=== PATIENT | male | born 1990 | race Caucasian/White ===

== ENCOUNTER 2021-11-04 09:39 | Emergency (ER) | payer MEDICAID, SELFPAY ==
[2021-11-04 09:45] VITALS: BP 149/88; PULSE 85; RESP 16; TEMP 37.2; O2SAT 100; BMI 25.2
--- NOTE | 2021-11-04 10:12 | ED.PSYCH ---
HPI - Psych General Chief Complaint: Psychiatric Symptoms Stated Complaint: Crisis Time Seen by Provider: 11/04/21 09:55 Source: patient Mode of arrival: ambulatory Limitations: no limitations History of Present Illness HPI Narrative: 31 yo male previously healthy here with reports of suicidal ideations over the last 1 month with no plan. No homicidal ideations, hallucinations. Patient tells me he has been intermittently snorting and smoking cocaine. He does also drink alcohol occasionally. No additional substance use. No physical complaints. Patient tells me he recently had a break-up with a partner and believes this may be contributing to his symptoms Related Data Allergies Allergy/AdvReac Type Severity Reaction Status Date / Time cefdinir [From OMNICEF] Allergy Unknown ANAPHYLAXIS Verified 11/04/21 09:45 Review of Systems Review of Systems: Yes all other systems are reviewed and are negative Constitutional: Constitutional: Reports no additional constitutional complaints, Denies body ache(s), Denies chills, Denies fever(s), Denies headache(s) and Denies weakness Eyes: Eyes: Reports no additional eye complaints and Denies change in vision ENT: Reports system reviewed and no additional complaints, except as documented, Denies dizziness, Denies headache(s), Denies nasal congestion, Denies nasal discharge and Denies neck pain Cardiovascular: Cardiovascular: Reports no additional cardiovascular complaints, Denies chest pain, Denies leg edema and Denies dyspnea Respiratory: Respiratory: Reports no additional respiratory complaints, Denies cough and Denies dyspnea Gastrointestinal: Gastrointestinal: Reports no additional gastrointestinal complaints, Denies abdominal pain, Denies diarrhea, Denies nausea and Denies vomiting Genitourinary: Genitourinary: Denies urinary incontinence Musculoskeletal: Musculoskeletal: Reports no additional musculoskeletal complaints, Denies back pain, Denies arthralgias, Denies joint swelling, Denies neck pain, Denies numbness and Denies tingling Integumentary/Breasts: Skin/Breast: Reports system reviewed and no additional complaints, except as docu and Denies rash Neurologic: Reports system reviewed and no additional complaints, except as documented, Denies Abnormal speech present, Denies dizziness, Denies headache(s), Denies numbness, Denies tingling and Denies weakness Psychiatric: Psychiatric: Denies anxiety, Reports depression, Denies visual hallucinations, Denies hallucinations, Denies homicidal ideation and Reports suicidal ideation [facility] Past Medical History Attestation statement: The following information was validated with the patient. Source: old records reviewed and nursing notes reviewed Medical History No known health problems Social History Social History Smoked in Last 30 Days: Yes Use of substances other than those prescribed or required for medical reasons: Refusing to respond Advance Directives: No Advance Directives Information Provided: No Physical Exam Vital Signs: Vital Signs: Last Vital Signs Temp 97.7 F 11/04/21 15:00 Pulse 67 11/04/21 15:00 Resp 12 11/04/21 15:00 BP 127/71 11/04/21 15:00 Pulse Ox 100 11/04/21 15:00 BMI result Body Mass Index 25.2 Const: General: cooperative, healthy appearing, comfortable and no acute distress Orientation/consciousness: patient oriented x3 Limitations: no limitations HENMT: Head: Yes normal to inspection Ears: hearing grossly normal bilaterally General nose exam: Normal external nose present Face and sinus: Yes normal facial exam Mouth: Normal oral and palatal mucosa present Throat: Yes posterior oropharynx normal Eyes: General: appearance normal, both eyes and all related structures Pupils: Equal, round and reactive pupils present Neck: Neck: Yes normal visual inspection Chest: Chest palpation & inspection: normal inspection of the chest Resp: Effort & Inspection: normal respiratory effort Auscultation: clear to auscultation bilaterally Cardio: Rate: regular rate Rhythm: regular rhythm Peripheral pulses: Peripheral pulses 2+ throughout GI: Inspection: Yes normal to inspection Palpation (GI): Soft to palpation and nontender Auscultation: normal bowel sounds Back/Spine/Pelvis: Thoracic/Lumbar Spine: thoracic and lumbar spine normal to inspection Skin: General skin exam: no rashes or lesions noted Neuro: General: patient oriented x3, no focal motor deficits and normal sensation to monofilament Cranial nerves: Yes CN's II-XII intact bilaterally, Yes Equal, round and reactive pupils present, Yes Bilaterally intact EOM present, Yes Nystagmus not present, Yes Normal facial strength present and Yes Midline tongue present Cognition (Neuro): normal cognition Speech: No Abnormal speech present Gait exam (Neuro): Normal gait present Motor exam (neuro): 5/5 motor strength present throughout Sensory Exam: Normal double simultaneous stimulation for sensation Extrem: General: Yes normal to inspection and Yes no pedal edema Course Course Course Narrative: 31-year-old male here with reports of suicidal thoughts over the last 1 month. No physical complaints. No concern for acute ingestion or trauma will check labs, toxicology, COVID screen. patient will need crisis evaluation 1800-Sign out to night team pending crisis evaluation. MDM - Psych Medical Records Attestation: I reviewed the patient's medical records. Lab Data Attestation: I reviewed the patient's lab results. Result diagrams: 11/04/21 10:23 11/04/21 10:23 Labs: Lab Results 11/04/21 11/04/21 11/04/21 Range/Units 10:23 10: 10:23 WBC 8.1 (4.8-10.8) X10*3/uL RBC 5.32 (4.60-5.80) X10*6/uL Hgb 15.7 (14.0-18.0) g/dl Hct 46.0 (42.0-52.0) % MCV 86.5 (80.0-98.0) fL MCH 29.5 (27.0-33.0) pg MCHC 34.1 (31.0-36.0) g/dl RDW 12.2 (11.0-16.0) % Plt Count 331 (160-400) X10*3/uL MPV 8.9 L (9.4-12.4) fL Immature Gran % (Auto) 0.2 (0.0-0.4) % Neut % (Auto) 63.5 (45-73) % Lymph % (Auto) 24.3 (20-40) % [place] % (Auto) 9.4 (2-11) % Eos % (Auto) 2.2 (0-4) % Baso % (Auto) 0.4 (0-2) % Lymph # (Auto) 2.0 (1.2-4.9) X10*3/uL [place] # (Auto) 0.8 (0.1-1.2) X10*3/uL Eos # (Auto) 0.2 (0.0-0.4) X10*3/uL Baso # (Auto) 0.0 (0.0-0.2) X10*3/uL Abs Immat Gran (auto) 0.02 (0.00-0.03) X10*3/uL Absolute Neuts (auto) 5.1 (2.0-8.3) x10*3/uL Absolute Nucleated RBC 0.000 (0.0-0.012) X10*3/uL Nucleated RBC % (auto) 0.0 (0.0-0.2) /100WBC Sodium 138 (135-145) mmol/L Potassium 4.4 (3.3-5.1) mmol/L Chloride 102 (96-108) mmol/L Carbon Dioxide 30 H (22-29) mmol/L Anion Gap 10 L (12-20) BUN 11 (9-16) mg/dL Creatinine 1.10 (0.5-1.4) mg/dL Estim Creat Clear Calc 111.0 Estimated GFR > 60 Random Glucose 93 (60-115) mg/dL Calcium 10.0 (8.4-10.2) mg/dL Total Bilirubin 1.1 H (0.0-1.0) mg/dL Direct Bilirubin 0.4 (0.0-0.5) mg/dL AST 16 (5-37) U/L ALT 18 (0-40) U/L Alkaline Phosphatase 78 (39-117) U/L Total Protein 7.2 (6.5-8.0) g/dL Albumin 4.6 (3.5-5.0) g/dL Urine Opiates Screen (Not Detect) Urine Fentanyl Screen (Not Detect) Ur Barbiturates Screen (Not Detect) Ur Phencyclidine Scrn (Not Detect) Ur Amphetamines Screen (Not Detect) U Benzodiazepines Scrn (Not Detect) Urine Cocaine Screen (Not Detect) U Marijuana (THC) Screen (Not Detect) Ethyl Alcohol mg/dL COVID-19 ([facility]) Negative (Negative) COVID-19 Clin Com See Note 11/04/21 11/04/21 Range/Units 10:23 11:59 WBC (4.8-10.8) X10*3/uL RBC (4.60-5.80) X10*6/uL Hgb (14.0-18.0) g/dl Hct (42.0-52.0) % MCV (80.0-98.0) fL MCH (27.0-33.0) pg MCHC (31.0-36.0) g/dl RDW (11.0-16.0) % Plt Count (160-400) X10*3/uL MPV (9.4-12.4) fL Immature Gran % (Auto) (0.0-0.4) % Neut % (Auto) (45-73) % Lymph % (Auto) (20-40) % [place] % (Auto) (2-11) % Eos % (Auto) (0-4) % Baso % (Auto) (0-2) % Lymph # (Auto) (1.2-4.9) X10*3/uL [place] # (Auto) (0.1-1.2) X10*3/uL Eos # (Auto) (0.0-0.4) X10*3/uL Baso # (Auto) (0.0-0.2) X10*3/uL Abs Immat Gran (auto) (0.00-0.03) X10*3/uL Absolute Neuts (auto) (2.0-8.3) x10*3/uL Absolute Nucleated RBC (0.0-0.012) X10*3/uL Nucleated RBC % (auto) (0.0-0.2) /100WBC Sodium (135-145) mmol/L Potassium (3.3-5.1) mmol/L Chloride (96-108) mmol/L Carbon Dioxide (22-29) mmol/L Anion Gap (12-20) BUN (9-16) mg/dL Creatinine (0.5-1.4) mg/dL Estim Creat Clear Calc Estimated GFR Random Glucose (60-115) mg/dL Calcium (8.4-10.2) mg/dL Total Bilirubin (0.0-1.0) mg/dL Direct Bilirubin (0.0-0.5) mg/dL AST (5-37) U/L ALT (0-40) U/L Alkaline Phosphatase (39-117) U/L Total Protein (6.5-8.0) g/dL Albumin (3.5-5.0) g/dL Urine Opiates Screen Not Detected (Not Detect) Urine Fentanyl Screen Not Detected (Not Detect) Ur Barbiturates Screen Not Detected (Not Detect) Ur Phencyclidine Scrn Not Detected (Not Detect) Ur Amphetamines Screen POSITIVE H (Not Detect) U Benzodiazepines Scrn Not Detected (Not Detect) Urine Cocaine Screen POSITIVE H (Not Detect) U Marijuana (THC) Screen Not Detected (Not Detect) Ethyl Alcohol < 10 mg/dL COVID-19 ([facility]DRA) (Negative) COVID-19 Clin Com Discharge Plan Discharge Clinical Impression: Depression Patient Disposition: Still a Patient
[2021-11-04 10:29] LABS: MANUAL DIFF FLAG NO
[2021-11-04 10:31] LABS: Basophils Percent Auto 0.4 % (0-2); Eosinophils Absolute Auto 0.2 X10*3/uL (0.0-0.4); Eosinophils Percent Auto 2.2 % (0-4); Hemoglobin 15.7 g/dl (14.0-18.0); Imm Gran Abs Auto 0.02 X10*3/uL (0.00-0.03); Imm Gran Pct Auto 0.2 % (0.0-0.4); Lymphocytes Percent Auto 24.3 % (20-40); Mean Corpuscular HGB Conc 34.1 g/dl (31.0-36.0); Mean Corpuscular Hemoglobin 29.5 pg (27.0-33.0); Mean Corpuscular Volume 86.5 fL (80.0-98.0); Mean Platelet Volume 8.9 fL (9.4-12.4); Monocytes Absolute Auto 0.8 X10*3/uL (0.1-1.2); Monocytes Percent Auto 9.4 % (2-11); Neutrophils Absolute Auto 5.1 x10*3/uL (2.0-8.3); Neutrophils Percent Auto 63.5 % (45-73); Platelet Count 331 X10*3/uL (160-400); Red Blood Count 5.32 X10*6/uL (4.60-5.80); Red Cell Distribution Width 12.2 % (11.0-16.0); White Blood Count 8.1 X10*3/uL (4.8-10.8)
[2021-11-04 10:42] LABS: Ethanol < 10 mg/dL
[2021-11-04 10:46] LABS: Alanine Aminotransferase 18 U/L (0-40); Albumin Level 4.6 g/dL (3.5-5.0); Alkaline Phosphatase 78 U/L (39-117); Anion Gap 10 (12-20); Aspartate Amino Transferase 16 U/L (5-37); Bilirubin Direct 0.4 mg/dL (0.0-0.5); Bilirubin Total 1.1 mg/dL (0.0-1.0); Blood Urea Nitrogen 11 mg/dL (9-16); Carbon Dioxide 30 mmol/L (22-29); Chloride 102 mmol/L (96-108); Estimated Glomerular Filt Rate > 60; Glucose Random 93 mg/dL (60-115); Potassium 4.4 mmol/L (3.3-5.1); Sodium 138 mmol/L (135-145); Total Protein 7.2 g/dL (6.5-8.0)
[2021-11-04 10:56] LABS: COVID-19 Test Negative (Negative); IDNOW Serial# 9DD0AD1C
[2021-11-04 11:04] VITALS: BP 138/87; PULSE 86; RESP 14; O2SAT 100
--- NOTE | 2021-11-04 13:39 | MHC.CARE ---
Call from [facility] intake, needed patient's presenting problem, risk and tox screen to complete referral. Will call back with ETA
[2021-11-04 14:32] LABS: Amphetamine Screen Urine POSITIVE (Not Detect); Barbiturates, Urine Not Detected (Not Detect); Benzodiazepines Screen Urine Not Detected (Not Detect); Cannabinoid Screen Urine Not Detected (Not Detect); Cocaine Screen Urine POSITIVE (Not Detect); Fentanyl, urine Not Detected (Not Detect); Opiate Screen Urine Not Detected (Not Detect); Phencyclidine Screen Urine Not Detected (Not Detect)
[2021-11-04 15:00] VITALS: BP 127/71; PULSE 67; RESP 12; TEMP 36.5; O2SAT 100
[2021-11-04] MEDS: Nicotine 21 MG PATCH.TD24 TRANSDERMA (18:02)
== END 2021-11-04 20:27 | disposition still patient (30) ==
PROVIDERS: Nurse Practitioner Family; Emergency Provider Emergency Medicine
DX: F33.1 Major depressive disorder, recurrent, moderate (principal); F14.10 Cocaine abuse, uncomplicated; Z20.822 Contact with and (suspected) exposure to COVID-19; Z79.899 Other long term (current) drug therapy
CPT/HCPCS: 36415; 80048; 80076; 80307; 82077; 85025; 87635; 99285

== ENCOUNTER 2022-01-04 23:46 | Emergency (ER) | payer MEDICAID, SELFPAY ==
--- NOTE | ~2022-01-04 | XR_ITS ---
EXAMINATION: XR CHEST CLINICAL INFORMATION: Pain, suicidal attempt COMPARISON: 10/30/2019 TECHNIQUE: Frontal view of the chest was obtained. FINDINGS: The lungs are clear with no focal consolidation. No evidence of pneumothorax, pulmonary edema, or pleural effusions. The cardiomediastinal silhouette is unremarkable. No acute osseous findings. XR/XR chest 1V IMPRESSION: No acute cardiopulmonary findings.
[2022-01-04 23:56] VITALS: BP 143/88; BP 153/93; PULSE 78; RESP 16; O2SAT 100; BMI 29.2
--- NOTE | 2022-01-04 23:57 | ECG_ITS ---
Test Reason : si Blood Pressure : / mmHG Vent. Rate : 075 BPM Atrial Rate : 075 BPM P-R Int : 168 ms QRS Dur : 090 ms QT Int : 354 ms P-R-T Axes : 065 045 049 degrees QTc Int : 395 ms Normal sinus rhythm Normal ECG When compared with ECG of 30-OCT-2019 09:12, No significant change was found Referred By: Tash Mauricio Electronically Signed By:Kam Ferguson
--- NOTE | 2022-01-05 00:02 | ED.GENADULT ---
HPI - General Adult General Chief complaint: Psychiatric Symptoms <Tash Mauricio MD - Last Filed: 01/05/22 07:13> Stated complaint: SI <Tash Mauricio MD - Last Filed: 01/05/22 07:13> Time Seen by Provider: 01/04/22 23:56 <Tash Mauricio MD - Last Filed: 01/05/22 07:13> Source: patient and EMS <Tash Mauricio MD - Last Filed: 01/05/22 07:13> Mode of arrival: EMS <Tash Mauricio MD - Last Filed: 01/05/22 07:13> Limitations: no limitations <Tash Mauricio MD - Last Filed: 01/05/22 07:13> History of Present Illness HPI narrative: 31 years old male came in by ambulance for evaluation after suicide attempt. 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 Patient was found semiconscious admit to drinking alcohol tonight but no other overdosed, reportedly by EMS/police the car was full of smoke and initially patient was found unresponsive inside the car, consciousness has been fluctuating, in the ED patient now is fully conscious and able to response to verbal stimuli and answer questions. <Tash Mauricio MD - Last Filed: 01/05/22 07:13> Related Data Allergies/adverse reactions: Allergies Allergy/AdvReac Type Severity Reaction Status Date / Time cefdinir [From OMNICEF] Allergy Unknown ANAPHYLAXIS Verified 11/04/21 09:45 <Tash Mauricio MD - Last Filed: 01/05/22 07:13> Review of Systems Review of Systems: All other systems are reviewed and are negative Constitutional: Reports as per HPI and Reports no additional constitutional complaints Eyes: Reports as per HPI and Reports no additional eye complaints Reports system reviewed and no additional complaints, except as documented Cardiovascular: Reports as per HPI and Reports no additional cardiovascular complaints Respiratory: Reports as per HPI and Reports no additional respiratory complaints Gastrointestinal: Reports as per HPI and Reports no additional gastrointestinal complaints Genitourinary: Reports no additional female genitourinary complaints Musculoskeletal: Reports no additional musculoskeletal complaints Skin/Breast: Reports system reviewed and no additional complaints, except as docu Psychiatric: Reports no additional psychiatric complaints Endocrine: Reports no additional endocrine complaints Hematologic/Lymphatic: Reports no additional hematologic/lymphatic complaints Allergic/Immunologic: Reports no additional allergic/immunologic complaints Reports system reviewed and no additional complaints, except as documented and Reports Abnormal speech present <Tash Mauricio MD - Last Filed: 01/05/22 07:13> [facility] Past Medical History Medical History: Medical History No known health problems <Tash Mauricio MD - Last Filed: 01/05/22 07:13> Social History Social History: Social History Alcohol intake: current Patient Tobacco Use Status: Current everyday Tobacco user Use of substances other than those prescribed or required for medical reasons: No Advance Directives: No Advance Directives Information Provided: Yes <Tash Mauricio MD - Last Filed: 01/05/22 07:13> Physical Exam ED Vital Signs: Vital Signs - 24 hr 01/04/22 23:56 01/05/22 02:28 01/05/22 04:30 Pulse Rate 78 74 80 Respiratory Rate 16 16 12 Blood Pressure 143/88 H 130/64 120/64 Pulse Oximetry 100 98 97 BMI result Body Mass Index 29.2 Vital signs have been reviewed as appeared to be correct. Blood pressure normal. Heart rate normal. Respiration rate normal. Temperature normal. Oxygen saturation normal. <Tash Mauricio MD - Last Filed: 01/05/22 07:13> Vital Signs - 24 hr 01/04/22 23:56 01/05/22 02:28 01/05/22 04:30 Pulse Rate 78 74 80 Respiratory Rate 16 16 12 Blood Pressure 143/88 H 130/64 120/64 Pulse Oximetry 100 98 97 BMI result Body Mass Index 29.2 <Sho Alba DO - Last Filed: 01/05/22 07:40> Appearance: Alert. Oriented X3. No acute distress. Head: Normal external exam. Normocephalic. Atraumatic. No [place] signs noted. No raccoon eyes noted Eyes: PERRLA. EOMI. Conjunctiva and sclera normal. Eyelids normal. ENT: TM's Normal. Pharynx normal. Uvula midline. Moist mucous membranes. No trismus noted. No drooling noted. No muffled voice noted. Neck: Normal inspection. Neck supple. FROM. No adenopathy. Thyroid Normal. No meningeal signs. No neck mass noted. CVS: Normal heart rate and rhythm. Heart sound normal. No murmurs noted. Pulses normal throughout. Respiratory: No respiratory distress. Painless inspiration. Breath sounds normal. No wheezes/rales/rhonchi noted. Chest nontender. No accessory muscle usage noted or decreased air movement noted. Abdomen: Soft and nontender. Bowel sounds normal in all 4 quadrants. No distention noted. No organomegaly noted. No visible injury noted. Back: No CVA tenderness. Full range of motion noted. Skin: Skin warm and dry. Normal skin color. Normal skin turgor. No rashes/lesions/lacerations noted. Extremities: No lower extremity edema. Extremities exhibit normal range of motion. Extremities nontender. Neuro: Oriented X 3. Cranial nerve exam: II-XII are grossly intact No motor deficit. No sensory deficit. Reflexes normal. Patient Orientation: Person, Place, Time and Situation Level of Consciousness: Awake, Appropriate and Alert Patient Behavior: Appropriate, Guarded, Cooperative and Anxious Mood Description: Constricted, Blunted and Apprehensive Affect Description: Constricted, Blunted and Apprehensive Patient Cognition Impaired: No Ability to Follow Directions: Excellent Speech Pattern: Clear, Appropriate and Spontaneous Speech Memory Description: Intact, Immediate Intact and Short Term Intact Hallucinations: None Delusions: Not Present Thought Process: Intact Thought Content: positive for Intact, positive for Logical, denies Suicidal Ideation and denies Homicidal Ideation. Depressive Symptoms: Present Judgement: Poor Judgement and Insight: Poor. <Tash Mauricio MD - Last Filed: 01/05/22 07:13> Course Course Course Narrative: Assessment and plan. 31-year-old male came in after attempt of suicide by intentionally inhaling carbon monoxide in his enclosed car, patient is awake, alert, oriented x3, carbon monoxide level is declining, patient do not have criteria for hyperbaric oxygen therapy. Will medically clear him for psych evaluation. <Tash Mauricio MD - Last Filed: 01/05/22 07:13> Reevaluation(s) Reevaluation #1: Physician observation started at 07:00 . Patient placed in physician observation because the patient needed more time for medication to work and to see PT/case management for evaluation and the need for placement patient's vital sign were stable, patient is alert and oriented , neuro exam unchanged, unremarkable rest of physical exam. <Tash Mauricio MD - Last Filed: 01/05/22 07:13> Physician observation started at 07:00 . Patient placed in physician observation because the patient needed more time for medication to work and to see PT/case management for evaluation and the need for placement patient's vital sign were stable, patient is alert and oriented , neuro exam unchanged, unremarkable rest of physical exam. ADDENDUM: Physician observation continued. Currently resting at this time. Medically cleared. No complaints. Pending N evaluation at this time given his very concerning presentation. Neurologically intact. <Sho Alba DO - Last Filed: 01/05/22 07:40> Time: 07:12 <Tash Mauricio MD - Last Filed: 01/05/22 07:13> Medical Decision Making Lab Data Lab results reviewed: Yes I reviewed the patient's lab results. <Tash Mauricio MD - Last Filed: 01/05/22 07:13> Result diagrams: : 01/05/22 00:13 01/05/22 00:13 <Tash Mauricio MD - Last Filed: 01/05/22 07:13> Labs: Lab Results 01/05/22 01/05/22 01/05/22 Range/Units 00:13 00:13 00:13 WBC 9.2 (4.8-10.8) X10*3/uL RBC 5.09 (4.60-5.80) X10*6/uL Hgb 15.2 (14.0-18.0) g/dl Hct 44.4 (42.0-52.0) % MCV 87.2 (80.0-98.0) fL MCH 29.9 (27.0-33.0) pg MCHC 34.2 (31.0-36.0) g/dl RDW 12.2 (11.0-16.0) % Plt Count 311 (160-400) X10*3/uL MPV 8.7 L (9.4-12.4) fL Immature Gran % (Auto) 0.3 (0.0-0.4) % Neut % (Auto) 56.2 (45-73) % Lymph % (Auto) 31.6 (20-40) % [place] % (Auto) 8.1 (2-11) % Eos % (Auto) 3.4 (0-4) % Baso % (Auto) 0.4 (0-2) % Lymph # (Auto) 2.9 (1.2-4.9) X10*3/uL [place] # (Auto) 0.7 (0.1-1.2) X10*3/uL Eos # (Auto) 0.3 (0.0-0.4) X10*3/uL Baso # (Auto) 0.0 (0.0-0.2) X10*3/uL Abs Immat Gran (auto) 0.03 (0.00-0.03) X10*3/uL Absolute Neuts (auto) 5.2 (2.0-8.3) x10*3/uL Absolute Nucleated RBC 0.000 (0.0-0.012) X10*3/uL Nucleated RBC % (auto) 0.0 (0.0-0.2) /100WBC Carboxyhemoglobin % % Sodium 142 (135-145) mmol/L Potassium 4.0 (3.3-5.1) mmol/L Chloride 107 (96-108) mmol/L Carbon Dioxide 24 (22-29) mmol/L Anion Gap 15 (12-20) BUN 15 (9-16) mg/dL Creatinine 0.94 (0.5-1.4) mg/dL Estim Creat Clear Calc 131.5 Estimated GFR > 60 Random Glucose 88 (60-115) mg/dL Osmolality (281-305) mosm/kg Calcium 9.5 (8.4-10.2) mg/dL Total Bilirubin 0.3 (0.0-1.0) mg/dL Direct Bilirubin < 0.2 (0.0-0.5) mg/dL AST 25 D (5-37) U/L ALT 37 (0-40) U/L Alkaline Phosphatase 82 (39-117) U/L Troponin I High Sens < 3.5 (<3.5-35.0) ng/L B-Natriuretic Peptide 12 (<100) pg/mL Total Protein 7.5 (6.5-8.0) g/dL Albumin 4.9 (3.5-5.0) g/dL Lipase 22 (8-78) U/L Urine Color Urine Appearance Urine pH (5.0-8.0) Ur Specific [place] (1.005-1.025) Urine Protein (NEG-TRACE) MG/DL Urine Glucose (UA) (NEG) MG/DL Urine Ketones (NEG) MG/DL Urine Blood (NEG) Urine Nitrite (NEG) Ur Leukocyte Esterase (NEG) Salicylates < 5.0 L (15-30) mg/dL Urine Opiates Screen (Not Detect) Urine Fentanyl Screen (Not Detect) Acetaminophen < 1 (<30) mcg/mL Ur Barbiturates Screen (Not Detect) Ur Phencyclidine Scrn (Not Detect) Ur Amphetamines Screen (Not Detect) U Benzodiazepines Scrn (Not Detect) Urine Cocaine Screen (Not Detect) U Marijuana (THC) Screen (Not Detect) Ethyl Alcohol mg/dL COVID-19 (ZANDRA) (Negative) COVID-19 Clin Com 01/05/22 01/05/22 01/05/22 Range/Units 00:13 00:13 00:13 WBC (4.8-10.8) X10*3/uL RBC (4.60-5.80) X10*6/uL Hgb (14.0-18.0) g/dl Hct (42.0-52.0) % MCV (80.0-98.0) fL MCH (27.0-33.0) pg MCHC (31.0-36.0) g/dl RDW (11.0-16.0) % Plt Count (160-400) X10*3/uL MPV (9.4-12.4) fL Immature Gran % (Auto) (0.0-0.4) % Neut % (Auto) (45-73) % Lymph % (Auto) (20-40) % [place] % (Auto) (2-11) % Eos % (Auto) (0-4) % Baso % (Auto) (0-2) % Lymph # (Auto) (1.2-4.9) X10*3/uL [place] # (Auto) (0.1-1.2) X10*3/uL Eos # (Auto) (0.0-0.4) X10*3/uL Baso # (Auto) (0.0-0.2) X10*3/uL Abs Immat Gran (auto) (0.00-0.03) X10*3/uL Absolute Neuts (auto) (2.0-8.3) x10*3/uL Absolute Nucleated RBC (0.0-0.012) X10*3/uL Nucleated RBC % (auto) (0.0-0.2) /100WBC Carboxyhemoglobin % % Sodium (135-145) mmol/L Potassium (3.3-5.1) mmol/L Chloride (96-108) mmol/L Carbon Dioxide (22-29) mmol/L Anion Gap (12-20) BUN (9-16) mg/dL Creatinine (0.5-1.4) mg/dL Estim Creat Clear Calc Estimated GFR Random Glucose (60-115) mg/dL Osmolality 328 H (281-305) mosm/kg Calcium (8.4-10.2) mg/dL Total Bilirubin (0.0-1.0) mg/dL Direct Bilirubin (0.0-0.5) mg/dL AST (5-37) U/L ALT (0-40) U/L Alkaline Phosphatase (39-117) U/L Troponin I High Sens (<3.5-35.0) ng/L B-Natriuretic Peptide (<100) pg/mL Total Protein (6.5-8.0) g/dL Albumin (3.5-5.0) g/dL Lipase (8-78) U/L Urine Color Urine Appearance Urine pH (5.0-8.0) Ur Specific [place] (1.005-1.025) Urine Protein (NEG-TRACE) MG/DL Urine Glucose (UA) (NEG) MG/DL Urine Ketones (NEG) MG/DL Urine Blood (NEG) Urine Nitrite (NEG) Ur Leukocyte Esterase (NEG) Salicylates (15-30) mg/dL Urine Opiates Screen (Not Detect) Urine Fentanyl Screen (Not Detect) Acetaminophen (<30) mcg/mL Ur Barbiturates Screen (Not Detect) Ur Phencyclidine Scrn (Not Detect) Ur Amphetamines Screen (Not Detect) U Benzodiazepines Scrn (Not Detect) Urine Cocaine Screen (Not Detect) U Marijuana (THC) Screen (Not Detect) Ethyl Alcohol 146 mg/dL COVID-19 (ZANDRA) Negative (Negative) COVID-19 Clin Com See Note 01/05/22 01/05/22 01/05/22 Range/Units 00:18 01:41 02:32 WBC (4.8-10.8) X10*3/uL RBC (4.60-5.80) X10*6/uL Hgb (14.0-18.0) g/dl Hct (42.0-52.0) % MCV (80.0-98.0) fL MCH (27.0-33.0) pg MCHC (31.0-36.0) g/dl RDW (11.0-16.0) % Plt Count (160-400) X10*3/uL MPV (9.4-12.4) fL Immature Gran % (Auto) (0.0-0.4) % Neut % (Auto) (45-73) % Lymph % (Auto) (20-40) % [place] % (Auto) (2-11) % Eos % (Auto) (0-4) % Baso % (Auto) (0-2) % Lymph # (Auto) (1.2-4.9) X10*3/uL [place] # (Auto) (0.1-1.2) X10*3/uL Eos # (Auto) (0.0-0.4) X10*3/uL Baso # (Auto) (0.0-0.2) X10*3/uL Abs Immat Gran (auto) (0.00-0.03) X10*3/uL Absolute Neuts (auto) (2.0-8.3) x10*3/uL Absolute Nucleated RBC (0.0-0.012) X10*3/uL Nucleated RBC % (auto) (0.0-0.2) /100WBC Carboxyhemoglobin % 7.3 H* 2.6 % Sodium (135-145) mmol/L Potassium (3.3-5.1) mmol/L Chloride (96-108) mmol/L Carbon Dioxide (22-29) mmol/L Anion Gap (12-20) BUN (9-16) mg/dL Creatinine (0.5-1.4) mg/dL Estim Creat Clear Calc Estimated GFR Random Glucose (60-115) mg/dL Osmolality (281-305) mosm/kg Calcium (8.4-10.2) mg/dL Total Bilirubin (0.0-1.0) mg/dL Direct Bilirubin (0.0-0.5) mg/dL AST (5-37) U/L ALT (0-40) U/L Alkaline Phosphatase (39-117) U/L Troponin I High Sens (<3.5-35.0) ng/L B-Natriuretic Peptide (<100) pg/mL Total Protein (6.5-8.0) g/dL Albumin (3.5-5.0) g/dL Lipase (8-78) U/L Urine Color YELLOW Urine Appearance CLEAR Urine pH 5.5 (5.0-8.0) Ur Specific [place] 1.020 (1.005-1.025) Urine Protein NEG (NEG-TRACE) MG/DL Urine Glucose (UA) NEG (NEG) MG/DL Urine Ketones NEG (NEG) MG/DL Urine Blood NEG (NEG) Urine Nitrite NEG (NEG) Ur Leukocyte Esterase NEG (NEG) Salicylates (15-30) mg/dL Urine Opiates Screen (Not Detect) Urine Fentanyl Screen (Not Detect) Acetaminophen (<30) mcg/mL Ur Barbiturates Screen (Not Detect) Ur Phencyclidine Scrn (Not Detect) Ur Amphetamines Screen (Not Detect) U Benzodiazepines Scrn (Not Detect) Urine Cocaine Screen (Not Detect) U Marijuana (THC) Screen (Not Detect) Ethyl Alcohol mg/dL COVID-19 (ZANDRA) (Negative) COVID-19 Clin Com 01/05/22 Range/Units 02:32 WBC (4.8-10.8) X10*3/uL RBC (4.60-5.80) X10*6/uL Hgb (14.0-18.0) g/dl Hct (42.0-52.0) % MCV (80.0-98.0) fL MCH (27.0-33.0) pg MCHC (31.0-36.0) g/dl RDW (11.0-16.0) % Plt Count (160-400) X10*3/uL MPV (9.4-12.4) fL Immature Gran % (Auto) (0.0-0.4) % Neut % (Auto) (45-73) % Lymph % (Auto) (20-40) % [place] % (Auto) (2-11) % Eos % (Auto) (0-4) % Baso % (Auto) (0-2) % Lymph # (Auto) (1.2-4.9) X10*3/uL [place] # (Auto) (0.1-1.2) X10*3/uL Eos # (Auto) (0.0-0.4) X10*3/uL Baso # (Auto) (0.0-0.2) X10*3/uL Abs Immat Gran (auto) (0.00-0.03) X10*3/uL Absolute Neuts (auto) (2.0-8.3) x10*3/uL Absolute Nucleated RBC (0.0-0.012) X10*3/uL Nucleated RBC % (auto) (0.0-0.2) /100WBC Carboxyhemoglobin % % Sodium (135-145) mmol/L Potassium (3.3-5.1) mmol/L Chloride (96-108) mmol/L Carbon Dioxide (22-29) mmol/L Anion Gap (12-20) BUN (9-16) mg/dL Creatinine (0.5-1.4) mg/dL Estim Creat Clear Calc Estimated GFR Random Glucose (60-115) mg/dL Osmolality (281-305) mosm/kg Calcium (8.4-10.2) mg/dL Total Bilirubin (0.0-1.0) mg/dL Direct Bilirubin (0.0-0.5) mg/dL AST (5-37) U/L ALT (0-40) U/L Alkaline Phosphatase (39-117) U/L Troponin I High Sens (<3.5-35.0) ng/L B-Natriuretic Peptide (<100) pg/mL Total Protein (6.5-8.0) g/dL Albumin (3.5-5.0) g/dL Lipase (8-78) U/L Urine Color Urine Appearance Urine pH (5.0-8.0) Ur Specific [place] (1.005-1.025) Urine Protein (NEG-TRACE) MG/DL Urine Glucose (UA) (NEG) MG/DL Urine Ketones (NEG) MG/DL Urine Blood (NEG) Urine Nitrite (NEG) Ur Leukocyte Esterase (NEG) Salicylates (15-30) mg/dL Urine Opiates Screen Not Detected (Not Detect) Urine Fentanyl Screen Not Detected (Not Detect) Acetaminophen (<30) mcg/mL Ur Barbiturates Screen Not Detected (Not Detect) Ur Phencyclidine Scrn Not Detected (Not Detect) Ur Amphetamines Screen Not Detected (Not Detect) U Benzodiazepines Scrn Not Detected (Not Detect) Urine Cocaine Screen Not Detected (Not Detect) U Marijuana (THC) Screen Not Detected (Not Detect) Ethyl Alcohol mg/dL COVID-19 (ZANDRA) (Negative) COVID-19 Clin Com <Tash Mauricio MD - Last Filed: 01/05/22 07:13> Lab Results 01/05/22 01/05/22 01/05/22 Range/Units 00:13 00:13 00:13 WBC 9.2 (4.8-10.8) X10*3/uL RBC 5.09 (4.60-5.80) X10*6/uL Hgb 15.2 (14.0-18.0) g/dl Hct 44.4 (42.0-52.0) % MCV 87.2 (80.0-98.0) fL MCH 29.9 (27.0-33.0) pg MCHC 34.2 (31.0-36.0) g/dl RDW 12.2 (11.0-16.0) % Plt Count 311 (160-400) X10*3/uL MPV 8.7 L (9.4-12.4) fL Immature Gran % (Auto) 0.3 (0.0-0.4) % Neut % (Auto) 56.2 (45-73) % Lymph % (Auto) 31.6 (20-40) % [place] % (Auto) 8.1 (2-11) % Eos % (Auto) 3.4 (0-4) % Baso % (Auto) 0.4 (0-2) % Lymph # (Auto) 2.9 (1.2-4.9) X10*3/uL [place] # (Auto) 0.7 (0.1-1.2) X10*3/uL Eos # (Auto) 0.3 (0.0-0.4) X10*3/uL Baso # (Auto) 0.0 (0.0-0.2) X10*3/uL Abs Immat Gran (auto) 0.03 (0.00-0.03) X10*3/uL Absolute Neuts (auto) 5.2 (2.0-8.3) x10*3/uL Absolute Nucleated RBC 0.000 (0.0-0.012) X10*3/uL Nucleated RBC % (auto) 0.0 (0.0-0.2) /100WBC Carboxyhemoglobin % % Sodium 142 (135-145) mmol/L Potassium 4.0 (3.3-5.1) mmol/L Chloride 107 (96-108) mmol/L Carbon Dioxide 24 (22-29) mmol/L Anion Gap 15 (12-20) BUN 15 (9-16) mg/dL Creatinine 0.94 (0.5-1.4) mg/dL Estim Creat Clear Calc 131.5 Estimated GFR > 60 Random Glucose 88 (60-115) mg/dL Osmolality (281-305) mosm/kg Calcium 9.5 (8.4-10.2) mg/dL Total Bilirubin 0.3 (0.0-1.0) mg/dL Direct Bilirubin < 0.2 (0.0-0.5) mg/dL AST 25 D (5-37) U/L ALT 37 (0-40) U/L Alkaline Phosphatase 82 (39-117) U/L Troponin I High Sens < 3.5 (<3.5-35.0) ng/L B-Natriuretic Peptide 12 (<100) pg/mL Total Protein 7.5 (6.5-8.0) g/dL Albumin 4.9 (3.5-5.0) g/dL Lipase 22 (8-78) U/L Urine Color Urine Appearance Urine pH (5.0-8.0) Ur Specific [place] (1.005-1.025) Urine Protein (NEG-TRACE) MG/DL Urine Glucose (UA) (NEG) MG/DL Urine Ketones (NEG) MG/DL Urine Blood (NEG) Urine Nitrite (NEG) Ur Leukocyte Esterase (NEG) Salicylates < 5.0 L (15-30) mg/dL Urine Opiates Screen (Not Detect) Urine Fentanyl Screen (Not Detect) Acetaminophen < 1 (<30) mcg/mL Ur Barbiturates Screen (Not Detect) Ur Phencyclidine Scrn (Not Detect) Ur Amphetamines Screen (Not Detect) U Benzodiazepines Scrn (Not Detect) Urine Cocaine Screen (Not Detect) U Marijuana (THC) Screen (Not Detect) Ethyl Alcohol mg/dL COVID-19 (ZANDRA) (Negative) COVID-19 Clin Com 01/05/22 01/05/22 01/05/22 Range/Units 00:13 00:13 00:13 WBC (4.8-10.8) X10*3/uL RBC (4.60-5.80) X10*6/uL Hgb (14.0-18.0) g/dl Hct (42.0-52.0) % MCV (80.0-98.0) fL MCH (27.0-33.0) pg MCHC (31.0-36.0) g/dl RDW (11.0-16.0) % Plt Count (160-400) X10*3/uL MPV (9.4-12.4) fL Immature Gran % (Auto) (0.0-0.4) % Neut % (Auto) (45-73) % Lymph % (Auto) (20-40) % [place] % (Auto) (2-11) % Eos % (Auto) (0-4) % Baso % (Auto) (0-2) % Lymph # (Auto) (1.2-4.9) X10*3/uL [place] # (Auto) (0.1-1.2) X10*3/uL Eos # (Auto) (0.0-0.4) X10*3/uL Baso # (Auto) (0.0-0.2) X10*3/uL Abs Immat Gran (auto) (0.00-0.03) X10*3/uL Absolute Neuts (auto) (2.0-8.3) x10*3/uL Absolute Nucleated RBC (0.0-0.012) X10*3/uL Nucleated RBC % (auto) (0.0-0.2) /100WBC Carboxyhemoglobin % % Sodium (135-145) mmol/L Potassium (3.3-5.1) mmol/L Chloride (96-108) mmol/L Carbon Dioxide (22-29) mmol/L Anion Gap (12-20) BUN (9-16) mg/dL Creatinine (0.5-1.4) mg/dL Estim Creat Clear Calc Estimated GFR Random Glucose (60-115) mg/dL Osmolality 328 H (281-305) mosm/kg Calcium (8.4-10.2) mg/dL Total Bilirubin (0.0-1.0) mg/dL Direct Bilirubin (0.0-0.5) mg/dL AST (5-37) U/L ALT (0-40) U/L Alkaline Phosphatase (39-117) U/L Troponin I High Sens (<3.5-35.0) ng/L B-Natriuretic Peptide (<100) pg/mL Total Protein (6.5-8.0) g/dL Albumin (3.5-5.0) g/dL Lipase (8-78) U/L Urine Color Urine Appearance Urine pH (5.0-8.0) Ur Specific [place] (1.005-1.025) Urine Protein (NEG-TRACE) MG/DL Urine Glucose (UA) (NEG) MG/DL Urine Ketones (NEG) MG/DL Urine Blood (NEG) Urine Nitrite (NEG) Ur Leukocyte Esterase (NEG) Salicylates (15-30) mg/dL Urine Opiates Screen (Not Detect) Urine Fentanyl Screen (Not Detect) Acetaminophen (<30) mcg/mL Ur Barbiturates Screen (Not Detect) Ur Phencyclidine Scrn (Not Detect) Ur Amphetamines Screen (Not Detect) U Benzodiazepines Scrn (Not Detect) Urine Cocaine Screen (Not Detect) U Marijuana (THC) Screen (Not Detect) Ethyl Alcohol 146 mg/dL COVID-19 (ZANDRA) Negative (Negative) COVID-19 Clin Com See Note 01/05/22 01/05/22 01/05/22 Range/Units 00:18 01:41 02:32 WBC (4.8-10.8) X10*3/uL RBC (4.60-5.80) X10*6/uL Hgb (14.0-18.0) g/dl Hct (42.0-52.0) % MCV (80.0-98.0) fL MCH (27.0-33.0) pg MCHC (31.0-36.0) g/dl RDW (11.0-16.0) % Plt Count (160-400) X10*3/uL MPV (9.4-12.4) fL Immature Gran % (Auto) (0.0-0.4) % Neut % (Auto) (45-73) % Lymph % (Auto) (20-40) % [place] % (Auto) (2-11) % Eos % (Auto) (0-4) % Baso % (Auto) (0-2) % Lymph # (Auto) (1.2-4.9) X10*3/uL [place] # (Auto) (0.1-1.2) X10*3/uL Eos # (Auto) (0.0-0.4) X10*3/uL Baso # (Auto) (0.0-0.2) X10*3/uL Abs Immat Gran (auto) (0.00-0.03) X10*3/uL Absolute Neuts (auto) (2.0-8.3) x10*3/uL Absolute Nucleated RBC (0.0-0.012) X10*3/uL Nucleated RBC % (auto) (0.0-0.2) /100WBC Carboxyhemoglobin % 7.3 H* 2.6 % Sodium (135-145) mmol/L Potassium (3.3-5.1) mmol/L Chloride (96-108) mmol/L Carbon Dioxide (22-29) mmol/L Anion Gap (12-20) BUN (9-16) mg/dL Creatinine (0.5-1.4) mg/dL Estim Creat Clear Calc Estimated GFR Random Glucose (60-115) mg/dL Osmolality (281-305) mosm/kg Calcium (8.4-10.2) mg/dL Total Bilirubin (0.0-1.0) mg/dL Direct Bilirubin (0.0-0.5) mg/dL AST (5-37) U/L ALT (0-40) U/L Alkaline Phosphatase (39-117) U/L Troponin I High Sens (<3.5-35.0) ng/L B-Natriuretic Peptide (<100) pg/mL Total Protein (6.5-8.0) g/dL Albumin (3.5-5.0) g/dL Lipase (8-78) U/L Urine Color YELLOW Urine Appearance CLEAR Urine pH 5.5 (5.0-8.0) Ur Specific [place] 1.020 (1.005-1.025) Urine Protein NEG (NEG-TRACE) MG/DL Urine Glucose (UA) NEG (NEG) MG/DL Urine Ketones NEG (NEG) MG/DL Urine Blood NEG (NEG) Urine Nitrite NEG (NEG) Ur Leukocyte Esterase NEG (NEG) Salicylates (15-30) mg/dL Urine Opiates Screen (Not Detect) Urine Fentanyl Screen (Not Detect) Acetaminophen (<30) mcg/mL Ur Barbiturates Screen (Not Detect) Ur Phencyclidine Scrn (Not Detect) Ur Amphetamines Screen (Not Detect) U Benzodiazepines Scrn (Not Detect) Urine Cocaine Screen (Not Detect) U Marijuana (THC) Screen (Not Detect) Ethyl Alcohol mg/dL COVID-19 (ZANDRA) (Negative) COVID-19 Clin Com 01/05/22 Range/Units 02:32 WBC (4.8-10.8) X10*3/uL RBC (4.60-5.80) X10*6/uL Hgb (14.0-18.0) g/dl Hct (42.0-52.0) % MCV (80.0-98.0) fL MCH (27.0-33.0) pg MCHC (31.0-36.0) g/dl RDW (11.0-16.0) % Plt Count (160-400) X10*3/uL MPV (9.4-12.4) fL Immature Gran % (Auto) (0.0-0.4) % Neut % (Auto) (45-73) % Lymph % (Auto) (20-40) % [place] % (Auto) (2-11) % Eos % (Auto) (0-4) % Baso % (Auto) (0-2) % Lymph # (Auto) (1.2-4.9) X10*3/uL [place] # (Auto) (0.1-1.2) X10*3/uL Eos # (Auto) (0.0-0.4) X10*3/uL Baso # (Auto) (0.0-0.2) X10*3/uL Abs Immat Gran (auto) (0.00-0.03) X10*3/uL Absolute Neuts (auto) (2.0-8.3) x10*3/uL Absolute Nucleated RBC (0.0-0.012) X10*3/uL Nucleated RBC % (auto) (0.0-0.2) /100WBC Carboxyhemoglobin % % Sodium (135-145) mmol/L Potassium (3.3-5.1) mmol/L Chloride (96-108) mmol/L Carbon Dioxide (22-29) mmol/L Anion Gap (12-20) BUN (9-16) mg/dL Creatinine (0.5-1.4) mg/dL Estim Creat Clear Calc Estimated GFR Random Glucose (60-115) mg/dL Osmolality (281-305) mosm/kg Calcium (8.4-10.2) mg/dL Total Bilirubin (0.0-1.0) mg/dL Direct Bilirubin (0.0-0.5) mg/dL AST (5-37) U/L ALT (0-40) U/L Alkaline Phosphatase (39-117) U/L Troponin I High Sens (<3.5-35.0) ng/L B-Natriuretic Peptide (<100) pg/mL Total Protein (6.5-8.0) g/dL Albumin (3.5-5.0) g/dL Lipase (8-78) U/L Urine Color Urine Appearance Urine pH (5.0-8.0) Ur Specific [place] (1.005-1.025) Urine Protein (NEG-TRACE) MG/DL Urine Glucose (UA) (NEG) MG/DL Urine Ketones (NEG) MG/DL Urine Blood (NEG) Urine Nitrite (NEG) Ur Leukocyte Esterase (NEG) Salicylates (15-30) mg/dL Urine Opiates Screen Not Detected (Not Detect) Urine Fentanyl Screen Not Detected (Not Detect) Acetaminophen (<30) mcg/mL Ur Barbiturates Screen Not Detected (Not Detect) Ur Phencyclidine Scrn Not Detected (Not Detect) Ur Amphetamines Screen Not Detected (Not Detect) U Benzodiazepines Scrn Not Detected (Not Detect) Urine Cocaine Screen Not Detected (Not Detect) U Marijuana (THC) Screen Not Detected (Not Detect) Ethyl Alcohol mg/dL COVID-19 (ZANDRA) (Negative) COVID-19 Clin Com <Sho Alba DO - Last Filed: 01/05/22 07:40> Discharge Plan Discharge Clinical Impression: Suicidal ideation, Depression, Carbon monoxide exposure <Tash Mauricio MD - Last Filed: 01/05/22 07:13>
[2022-01-05 00:19] LABS: MANUAL DIFF FLAG NO
[2022-01-05 00:22] LABS: Basophils Percent Auto 0.4 % (0-2); Eosinophils Absolute Auto 0.3 X10*3/uL (0.0-0.4); Eosinophils Percent Auto 3.4 % (0-4); Hematocrit 44.4 % (42.0-52.0); Hemoglobin 15.2 g/dl (14.0-18.0); Imm Gran Abs Auto 0.03 X10*3/uL (0.00-0.03); Imm Gran Pct Auto 0.3 % (0.0-0.4); Lymphocytes Absolute Auto 2.9 X10*3/uL (1.2-4.9); Lymphocytes Percent Auto 31.6 % (20-40); Mean Corpuscular HGB Conc 34.2 g/dl (31.0-36.0); Mean Corpuscular Hemoglobin 29.9 pg (27.0-33.0); Mean Corpuscular Volume 87.2 fL (80.0-98.0); Mean Platelet Volume 8.7 fL (9.4-12.4); Monocytes Absolute Auto 0.7 X10*3/uL (0.1-1.2); Monocytes Percent Auto 8.1 % (2-11); Neutrophils Absolute Auto 5.2 x10*3/uL (2.0-8.3); Neutrophils Percent Auto 56.2 % (45-73); Platelet Count 311 X10*3/uL (160-400); Red Blood Count 5.09 X10*6/uL (4.60-5.80); Red Cell Distribution Width 12.2 % (11.0-16.0); White Blood Count 9.2 X10*3/uL (4.8-10.8)
[2022-01-05 00:30] LABS: Carbon Monoxide Refer to POC result
[2022-01-05 00:31] LABS: Carbon Monoxide POC 7.3 %
[2022-01-05 00:38] LABS: Ethanol 146 mg/dL
[2022-01-05 00:42] LABS: COVID-19 Test Negative (Negative)
[2022-01-05 00:43] LABS: Alanine Aminotransferase 37 U/L (0-40); Albumin Level 4.9 g/dL (3.5-5.0); Alkaline Phosphatase 82 U/L (39-117); Anion Gap 15 (12-20); Aspartate Amino Transferase 25 U/L (5-37); Bilirubin Direct < 0.2 mg/dL (0.0-0.5); Bilirubin Total 0.3 mg/dL (0.0-1.0); Blood Urea Nitrogen 15 mg/dL (9-16); Calcium 9.5 mg/dL (8.4-10.2); Carbon Dioxide 24 mmol/L (22-29); Chloride 107 mmol/L (96-108); Creatinine Clr Calc Pharmacy 131.5; Estimated Glomerular Filt Rate > 60; Glucose Random 88 mg/dL (60-115); Lipase 22 U/L (8-78); Sodium 142 mmol/L (135-145); Total Protein 7.5 g/dL (6.5-8.0)
[2022-01-05] MEDS: 0.9 % Sodium Chloride 1,000 ML 999 ML IV (00:43)
[2022-01-05 00:44] LABS: B Type Natriuretic Peptide 12 pg/mL (<100); Troponin-I High Sensitivity < 3.5 ng/L (<3.5-35.0)
[2022-01-05 01:01] LABS: Osmolality, Serum 328 mosm/kg (281-305)
[2022-01-05 01:06] LABS: Acetaminophen LAB < 1 mcg/mL (<30); Salicylate < 5.0 mg/dL (15-30)
[2022-01-05 01:48] LABS: Carbon Monoxide Refer to POC result
[2022-01-05 01:48] LABS: Carbon Monoxide POC 2.6 %
[2022-01-05 02:28] VITALS: BP 130/64; PULSE 74; RESP 16; O2SAT 98
[2022-01-05 02:41] LABS: Appearance Urine CLEAR; Color Urine YELLOW; Glucose Urine UA NEG (NEG); Leukocyte Esterase Urine NEG (NEG); Nitrite Urine NEG (NEG); PH 5.5 (5.0-8.0); Urine Blood NEG (NEG); Urine Ketones NEG (NEG); Urine Protein NEG (NEG-TRACE)
[2022-01-05 02:56] LABS: Amphetamine Screen Urine Not Detected (Not Detect); Barbiturates, Urine Not Detected (Not Detect); Benzodiazepines Screen Urine Not Detected (Not Detect); Cannabinoid Screen Urine Not Detected (Not Detect); Cocaine Screen Urine Not Detected (Not Detect); Fentanyl, urine Not Detected (Not Detect); Opiate Screen Urine Not Detected (Not Detect); Phencyclidine Screen Urine Not Detected (Not Detect)
--- NOTE | 2022-01-05 04:03 | PC.NURSE ---
I assumed nursing care of Adrian upon his arrival to bed 11 via EMS. He arrived s/p suicide attempt - he connected his car exhaust to a hose and fed the hose into his car with the window up. He was found by family who had been attempting to locate him - family who, per EMS, stated he has made severe threats of suicide. On arrival pt drowsy but alert, responds to verbal stimuli appropriately. He admits to SI. He denies HI. He makes eye contact with RN, flat affect, is calm and is oriented x 3 when assessed. Respirations non-labored, room air sat's WNL, he speaks in full sentences, no cyanosis. On arrival he was placed on 15L via non-rebreather. At approximately 0200 [address] [place] states pt can be removed from 15L NRB and may remain on room air. No nausea. NO vomiting. He denies any pain. On arrival 1:1 initiated, MD was direct to bedside, and pt was changed into BHPod clothes and belongings secured with security. IV access and labs were obtained. IVF's were initiated and have completed. The pt has taken PO fluids without difficulty and remains on all bedside monitors. We will continue to monitor Adrian.
[2022-01-05 04:30] VITALS: BP 120/64; PULSE 80; RESP 12; O2SAT 97
[2022-01-05] MEDS: Ibuprofen 400 MG TABLET PO (06:45)
[2022-01-05 16:48] VITALS: BP 137/61; PULSE 62; RESP 16; TEMP 36.4; O2SAT 99
[2022-01-05] MEDS: Nicotine 21 MG PATCH.TD24 TRANSDERMA (17:35)
--- NOTE | 2022-01-05 20:04 | MHC.CARE ---
CARE Team completed an exhaustive [place] bed[place] and faxed pt's referral packet to [facility], and [facility] for review.
--- NOTE | 2022-01-05 22:32 | MHC.CARE ---
[facility], pending his negative PCR test.
[2022-01-05 23:27] LABS: Influenza A PCR NEGATIVE (Negative); Influenza B PCR NEGATIVE (Negative); Resp Syncy Virus RNA Qual PCR NEGATIVE (Negative); SARS COV2 PCR INHOUSE NEGATIVE (Negative)
--- NOTE | 2022-01-06 01:17 | PC.NURSE ---
pt denies s1 or h1 at this time. pt has met with n.
[2022-01-06 01:23] VITALS: BP 136/76; PULSE 65; RESP 15; O2SAT 99
--- NOTE | 2022-01-06 07:17 | PC.NURSE ---
patient appears to remain asleep presently respirations are even and unlabored patient appears in no distress
== END 2022-01-06 11:02 ==
PROVIDERS: Nurse Practitioner Family; Emergency Provider Emergency Medicine
DX: F33.1 Major depressive disorder, recurrent, moderate (principal); R45.851 Suicidal ideations; R06.02 Shortness of breath; T58.92XA Toxic effect of carbon monoxide from unspecified source, intentional self-harm, initial encounter; Y92.9 Unspecified place or not applicable; Z20.822 Contact with and (suspected) exposure to COVID-19; Z79.899 Other long term (current) drug therapy; Z63.0 Problems in relationship with spouse or partner
CPT/HCPCS: 0241U; 36415; 71045; 80048; 80076; 80143; 80179; 80307; 81003; 82077; 82375; 83690; 83880; 83930; 84484; 85025; 87635; 93005; 99285

== ENCOUNTER 2022-02-11 22:39 | Inpatient (IN) | payer OTHER, SELFPAY ==
[2022-02-11 22:47] VITALS: BP 153/96; PULSE 95; RESP 18; TEMP 37.4; O2SAT 95; BMI 23.7
[2022-02-11 23:31] LABS: COVID-19 Test Negative (Negative)
[2022-02-11 23:34] LABS: Basophils Percent Auto 0.2 % (0-2); Eosinophils Absolute Auto 0.1 X10*3/uL (0.0-0.4); Eosinophils Percent Auto 1.2 % (0-4); Hematocrit 42.2 % (42.0-52.0); Hemoglobin 14.6 g/dl (14.0-18.0); Imm Gran Abs Auto 0.02 X10*3/uL (0.00-0.03); Imm Gran Pct Auto 0.2 % (0.0-0.4); Lymphocytes Absolute Auto 2.3 X10*3/uL (1.2-4.9); Lymphocytes Percent Auto 23.5 % (20-40); MANUAL DIFF FLAG NO; Mean Corpuscular HGB Conc 34.6 g/dl (31.0-36.0); Mean Corpuscular Hemoglobin 29.6 pg (27.0-33.0); Mean Corpuscular Volume 85.6 fL (80.0-98.0); Mean Platelet Volume 8.8 fL (9.4-12.4); Monocytes Absolute Auto 0.8 X10*3/uL (0.1-1.2); Monocytes Percent Auto 7.7 % (2-11); Neutrophils Absolute Auto 6.6 x10*3/uL (2.0-8.3); Neutrophils Percent Auto 67.2 % (45-73); Platelet Count 295 X10*3/uL (160-400); Red Blood Count 4.93 X10*6/uL (4.60-5.80); Red Cell Distribution Width 12.4 % (11.0-16.0); White Blood Count 9.8 X10*3/uL (4.8-10.8)
--- NOTE | 2022-02-11 23:44 | ED_ITS ---
HPI - Psych General Chief Complaint: Psychiatric Symptoms Stated Complaint: SI/Section 12 Time Seen by Provider: 02/11/22 22:55 Source: patient, EMS and police Mode of arrival: EMS Limitations: other (Patient not talkative, not answering all my questions.) History of Present Illness HPI Narrative: 31-year-old male history of previous suicide attempts presents to the emergency department via ambulance with police on a Section 12 for suicidal ideation. According to police and EMS patient made suicidal comments at home, drove off and told someone at home he wanted to drive into a tree. He was found by police and brought into the emergency department. He tells me what is triggering this is relationship problems. Patient not really talkative, only answering some questions. Denies visual, auditory and tactile hallucinations. Endorses that he made suicidal comments tells me he is not suicidal right now denies homicidal ideation. Denies medical complaints MD complaint: suicidal ideation History of same: Yes Relieving factors: none Exacerbating factors: none Associated psychiatric symptoms: none Associated symptoms: denies other symptoms Treatments prior to arrival: none If self harm: admits thoughts of self harm and has plan Related Data Home Medications Medication Instructions Recorded Confirmed No Known Home Meds 01/05/22 01/05/22 Allergies Allergy/AdvReac Type Severity Reaction Status Date / Time cefdinir [From OMNICEF] Allergy Unknown ANAPHYLAXIS Verified 11/04/21 09:45 Review of Systems Review of Systems: Constitutional : No Fever, No Chills ENT/Mouth : No Ear Pain, No Nasal Congestion, No sore throat Eyes: No Eye Pain, No Swelling, No Redness Cardiovascular : No Chest Pain, No SOB Respiratory : No Cough, No Sputum, No Dyspnea Gastrointestinal : No Nausea, No Vomiting, No Diarrhea, No Hematochezia, No Melena Genitourinary : No Dysuria, No Urinary Frequency, No Hematuria Musculoskeletal : No Myalgias Skin : No Skin Lesions, No rash Neuro : No Weakness, No Numbness, No Paresthesias, No Dizziness, No Headache Psych : positive Anxiety, positive Depression, positive SI, No HI All other systems reviewed and are negative Yes all other systems are reviewed and are negative [facility] Past Medical History Attestation statement: The following information was validated with the patient. Source: old records reviewed and nursing notes reviewed Medical History No known health problems Social History Social History Alcohol intake: current Patient Tobacco Use Status: Current everyday Tobacco user Advance Directives: No Physical Exam Vital Signs: Vital Signs: Last Vital Signs Temp 99.3 F 02/11/22 22:47 Pulse 95 02/11/22 22:47 Resp 18 02/11/22 22:47 BP 153/96 H 02/11/22 22:47 Pulse Ox 95 02/11/22 22:47 BMI result Body Mass Index 23.7 vss Appearance: Alert.? Oriented X3.? No acute distress.? Flat affect Head: Normocephalic, atraumatic, no step-offs or deformities Eyes: Pupils equal, round and reactive to light.? ENT: Pharynx normal.? Neck: Normal inspection.? Neck supple.? CVS: Normal heart rate and rhythm.? Pulses normal.? Respiratory: No respiratory distress.? Breath sounds normal.? Abdomen: Soft and nontender.? Skin: Skin warm and dry.? Normal skin color.? Normal skin turgor.? Extremities: No lower extremity edema.? No calf ttp. 5/5 strength to bilateral upper and lower extremities Neuro: Oriented X 3.? No motor deficit.? No sensory deficit. CN 2-12 intact Course Reevaluation(s) Reevaluation #1: CBC appears to be around patient's baseline. Chemistry with no acute electrolyte abnormalities. Ethanol negative. COVID negative. Urine and urine toxicology pending. At this time patient will be placed in physician observation to allow more time to be evaluated by the behavioral health team. At time observation started, cooperative no acute distress. Patient on a Section 12. Time: 00:18 MDM - Psych MDM Narrative Medical decision making narrative: 2299 31-year-old male presents with suicidal ideation with plan to drive into a tree. Brought in on a Section 12. Physical exam benign. Patient with a flat affect. Plan medical clearance and evaluation by the behavioral health team. To no patient was seen here not long ago for suicide attempt with carbon monoxide poisoning. Hx and physical examination not consistent with carbon monoxide poisoning. Medical Records Attestation: I reviewed the patient's medical records. Lab Data Attestation: I reviewed the patient's lab results. Result diagrams: 02/11/22 23:30 02/11/22 23:30 Labs: Lab Results 02/11/22 02/11/22 02/11/22 Range/Units 23:02 23:30 23:30 WBC 9.8 (4.8-10.8) X10*3/uL RBC 4.93 (4.60-5.80) X10*6/uL Hgb 14.6 (14.0-18.0) g/dl Hct 42.2 (42.0-52.0) % MCV 85.6 (80.0-98.0) fL MCH 29.6 (27.0-33.0) pg MCHC 34.6 (31.0-36.0) g/dl RDW 12.4 (11.0-16.0) % Plt Count 295 (160-400) X10*3/uL MPV 8.8 L (9.4-12.4) fL Immature Gran % (Auto) 0.2 (0.0-0.4) % Neut % (Auto) 67.2 (45-73) % Lymph % (Auto) 23.5 (20-40) % [place] % (Auto) 7.7 (2-11) % Eos % (Auto) 1.2 (0-4) % Baso % (Auto) 0.2 (0-2) % Lymph # (Auto) 2.3 (1.2-4.9) X10*3/uL [place] # (Auto) 0.8 (0.1-1.2) X10*3/uL Eos # (Auto) 0.1 (0.0-0.4) X10*3/uL Baso # (Auto) 0.0 (0.0-0.2) X10*3/uL Abs Immat Gran (auto) 0.02 (0.00-0.03) X10*3/uL Absolute Neuts (auto) 6.6 (2.0-8.3) x10*3/uL Absolute Nucleated RBC 0.000 (0.0-0.012) X10*3/uL Nucleated RBC % (auto) 0.0 (0.0-0.2) /100WBC Sodium 139 (135-145) mmol/L Potassium 4.0 (3.3-5.1) mmol/L Chloride 106 (96-108) mmol/L Carbon Dioxide 25 (22-29) mmol/L Anion Gap 12 (12-20) BUN 13 (9-16) mg/dL Creatinine 1.21 (0.5-1.4) mg/dL Estim Creat Clear Calc 95.3 Estimated GFR > 60 Random Glucose 107 (60-115) mg/dL Calcium 9.8 (8.4-10.2) mg/dL Magnesium 2.1 (1.6-2.6) mg/dL Total Bilirubin 0.7 (0.0-1.0) mg/dL AST 21 (5-37) U/L ALT 27 (0-40) U/L Alkaline Phosphatase 74 (39-117) U/L Total Protein 7.0 (6.5-8.0) g/dL Albumin 4.5 (3.5-5.0) g/dL Ethyl Alcohol mg/dL COVID-19 (ZANDRA) Negative (Negative) COVID-19 Clin Com See Note 02/11/22 Range/Units 23:30 WBC (4.8-10.8) X10*3/uL RBC (4.60-5.80) X10*6/uL Hgb (14.0-18.0) g/dl Hct (42.0-52.0) % MCV (80.0-98.0) fL MCH (27.0-33.0) pg MCHC (31.0-36.0) g/dl RDW (11.0-16.0) % Plt Count (160-400) X10*3/uL MPV (9.4-12.4) fL Immature Gran % (Auto) (0.0-0.4) % Neut % (Auto) (45-73) % Lymph % (Auto) (20-40) % [place] % (Auto) (2-11) % Eos % (Auto) (0-4) % Baso % (Auto) (0-2) % Lymph # (Auto) (1.2-4.9) X10*3/uL [place] # (Auto) (0.1-1.2) X10*3/uL Eos # (Auto) (0.0-0.4) X10*3/uL Baso # (Auto) (0.0-0.2) X10*3/uL Abs Immat Gran (auto) (0.00-0.03) X10*3/uL Absolute Neuts (auto) (2.0-8.3) x10*3/uL Absolute Nucleated RBC (0.0-0.012) X10*3/uL Nucleated RBC % (auto) (0.0-0.2) /100WBC Sodium (135-145) mmol/L Potassium (3.3-5.1) mmol/L Chloride (96-108) mmol/L Carbon Dioxide (22-29) mmol/L Anion Gap (12-20) BUN (9-16) mg/dL Creatinine (0.5-1.4) mg/dL Estim Creat Clear Calc Estimated GFR Random Glucose (60-115) mg/dL Calcium (8.4-10.2) mg/dL Magnesium (1.6-2.6) mg/dL Total Bilirubin (0.0-1.0) mg/dL AST (5-37) U/L ALT (0-40) U/L Alkaline Phosphatase (39-117) U/L Total Protein (6.5-8.0) g/dL Albumin (3.5-5.0) g/dL Ethyl Alcohol < 10 mg/dL COVID-19 (ZANDRA) (Negative) COVID-19 Clin Com Critical Care Time Critical Care Time Critical Care Time: No Discharge Plan Discharge Clinical Impression: Suicidal ideation, Depression Patient Disposition: Home, Self-Care Prescriptions: No Action No Known Home Meds 0RF
[2022-02-11 23:52] LABS: Ethanol < 10 mg/dL
[2022-02-11 23:55] LABS: Alanine Aminotransferase 27 U/L (0-40); Albumin Level 4.5 g/dL (3.5-5.0); Alkaline Phosphatase 74 U/L (39-117); Anion Gap 12 (12-20); Aspartate Amino Transferase 21 U/L (5-37); Bilirubin Total 0.7 mg/dL (0.0-1.0); Blood Urea Nitrogen 13 mg/dL (9-16); Calcium 9.8 mg/dL (8.4-10.2); Carbon Dioxide 25 mmol/L (22-29); Chloride 106 mmol/L (96-108); Creatinine Clr Calc Pharmacy 95.3; Estimated Glomerular Filt Rate > 60; Glucose Random 107 mg/dL (60-115); Magnesium 2.1 mg/dL (1.6-2.6); Sodium 139 mmol/L (135-145)
--- NOTE | 2022-02-12 | ECG_ITS ---
Test Reason : MEDICAL CLEARANCE Blood Pressure : / mmHG Vent. Rate : 055 BPM Atrial Rate : 055 BPM P-R Int : 162 ms QRS Dur : 088 ms QT Int : 404 ms P-R-T Axes : 063 025 060 degrees QTc Int : 386 ms Sinus bradycardia Otherwise normal ECG When compared with ECG of 04-JAN-2022 23:52, No significant change was found Referred By: Christelle Kasper Electronically Signed By:ALFRED GONSALVES
--- NOTE | 2022-02-12 01:15 | MHC.CARE ---
T/w attempted to meet with pt for an eval. Pt would not wake up for this internal communications writer despite saying his name several times. Pt presents to the ED on a section 12 from [facility] after making suicidal statements to his mother and drove off stating he was going to crash into a tree. T/w called his mother for more information. Kylie reports that pt has been significantly declining. She states I think he is on drugs . She reported that today he made several statements saying that's it I'm done and what really prompted her to call the PD was his report that he was going to crash into a tree and drove off. Pt's mother states the last time he was previously here he had an attempt via carbon monoxide and since d/c has ad a hard time locating a psychiatrist and declining. She reports that he is not in the right state of mind and has been increasingly depressed stating he tells me he is in a dark place . She reports he wouldn't get out of bed today and has been unable to show up for work. If he does show up for work he leaves within an hour. She reports has been getting worse and has conflicts with his girlfriend. She reports the girlfriend does not reside with him because she has a small child and does not feel like the child should be around him. Mother advocates for some help for her son and reports concerns that he previously attempted suicide. Pt will be evaluated once provides tox screen and wakes up.
--- NOTE | 2022-02-12 06:57 | PC.NURSE ---
Patient slept through the night, no distress observed/reported, behavior appropriate and non concerning, pending urine sample, [facility] referral completed/confirmed/pending ETA, med rec completed/pending provider's approval, will continue to monitor.
[2022-02-12 07:42] VITALS: BP 116/71; PULSE 55; RESP 14; TEMP 36.5; O2SAT 95
[2022-02-12 08:09] LABS: Amphetamine Screen Urine Not Detected (Not Detect); Barbiturates, Urine Not Detected (Not Detect); Benzodiazepines Screen Urine Not Detected (Not Detect); Cannabinoid Screen Urine POSITIVE (Not Detect); Cocaine Screen Urine POSITIVE (Not Detect); Fentanyl, urine Not Detected (Not Detect); Opiate Screen Urine Not Detected (Not Detect); Phencyclidine Screen Urine Not Detected (Not Detect)
--- NOTE | 2022-02-12 13:23 | PHA.MEDREC ---
Pharmacy Consult ? Medication Reconciliation Pharmacy has completed the medication reconciliation.
[2022-02-12] MEDS: Nicotine 21 MG PATCH.TD24 TRANSDERMA (14:36)
[2022-02-12] MEDS: Perphenazine 4 MG TABLET PO ×2 (16:39→20:52)
--- NOTE | 2022-02-12 17:23 | PC.NURSE ---
Adrian Torres is a 31 year old male admitted to on CV from [facility] for recent SI with a plan to drive his car into a tree in the context of a break up with SO of one year. He has a remote history of attempted suicide by carbon monoxide poisoning with one previous hospitalization at [facility]. He reports he has been off his prescribed meds for a long time due to not having a psychiatrist or pcp to prescribe them. He reports smoking crack three times per week for several months, drinking etoh a few times per month, smoking marijuana occasionally. Adrian denies ideation, plan or intent to harm himself or others. He denies perceptual disturbance. However, his responses to questions during interview are sometimes delayed. It is unclear if he is attending to internal stimuli or perhaps just very inattentive. He requested and received trilafon 4mg on arrival to the unit for ruminative thoughts. Adrian's appearance is disheveled. His clothing is soiled and his hygiene is fair. He is calm and cooperative with admission procedure. Other than 3/10 low back pain from these terrible beds he denies physical complaint. Adrian reports that his goal of hospitalization is to stop doing crack, get connected with providers and make a better life
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
[2022-02-12 20:13] VITALS: BP 132/67; PULSE 63; RESP 16; TEMP 36.6; O2SAT 97
[2022-02-12] MEDS: Mirtazapine 7.5 MG TABLET PO (21:40)
[2022-02-13 08:54] VITALS: BP 119/72; PULSE 66; RESP 16; TEMP 36.7; O2SAT 99
[2022-02-13] MEDS: Perphenazine 4 MG TABLET PO ×3 (08:56→21:51)
[2022-02-13] MEDS: DULoxetine HCl 60 MG CAPSULE.DR PO (08:56)
[2022-02-13] MEDS: Nicotine 21 MG PATCH.TD24 TRANSDERMA (08:56)
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
--- NOTE | 2022-02-13 17:56 | P.PNPSI_ITS ---
Subjective Subjective Date of Service: 02/13/22 Reason For Visit: SI Interim History: full admission psychiatric interview conducted with pt today as provider was not aware of Corey's admission note from yesterday. pt reports he is feeling better and would like to go home. we discuss likelihood of discharge early next week if things remain safe and stable. he thinks his current regimen serves him well and he is not interested in modifying it at the moment. the sense he makes of recent events is that he has insecurities. his GF is outgoing and independent, in many ways the opposite of him. his relationship status is we are talking. he reports he has no SI and no intention of killing himself. he states he has been saying i'm going to kill myself since he was a kid and doesn't seem to appreciate the change in others' parsing of that statement in the past month. no notable events or behaviors overnight, per staff. Mental Status Exam Mental Status Exam Narrative: A&O. Well groomed, good hygiene, normal body habitus, long hair. Good eye contact, attentive. No Tics or Tremors. No abnormal involuntary movements. Calm, not overly engaged but willing to answer questions with brief responses. Non- pressured speech, non-spontaneous, quiet vocal volume. No prolonged speech latency or dysarthria. Mood is ?better, affect is constricted. Denies SI/SIB/HI/AVH. Thoughts are somewhat slowed. No known cognitive or memory impairment. Insight/ Judgment fair and adequate. Diagnostics Vital Signs (24Hr): Vital Signs - 24 hr 02/12/22 20:13 02/13/22 08:54 Temperature 97.9 F 98.0 F Pulse Rate 63 66 Respiratory Rate 16 16 Blood Pressure 132/67 119/72 Pulse Oximetry 97 99 BMI result Body Mass Index 23.7 Labs Results: 02/11/22 23:30 02/11/22 23:30 Labs: Laboratory Results - last 48 hr 02/11/22 02/11/22 02/11/22 23:02 23:30 23:30 WBC 9.8 RBC 4.93 Hgb 14.6 Hct 42.2 MCV 85.6 MCH 29.6 MCHC 34.6 RDW 12.4 Plt Count 295 MPV 8.8 L Immature Gran % (Auto) 0.2 Neut % (Auto) 67.2 Lymph % (Auto) 23.5 [place] % (Auto) 7.7 Eos % (Auto) 1.2 Baso % (Auto) 0.2 Lymph # (Auto) 2.3 [place] # (Auto) 0.8 Eos # (Auto) 0.1 Baso # (Auto) 0.0 Abs Immat Gran (auto) 0.02 Absolute Neuts (auto) 6.6 Absolute Nucleated RBC 0.000 Nucleated RBC % (auto) 0.0 Sodium 139 Potassium 4.0 Chloride 106 Carbon Dioxide 25 Anion Gap 12 BUN 13 Creatinine 1.21 Estim Creat Clear Calc 95.3 Estimated GFR > 60 Random Glucose 107 Calcium 9.8 Magnesium 2.1 Total Bilirubin 0.7 AST 21 ALT 27 Alkaline Phosphatase 74 Total Protein 7.0 Albumin 4.5 Urine Opiates Screen Urine Fentanyl Screen Ur Barbiturates Screen Ur Phencyclidine Scrn Ur Amphetamines Screen U Benzodiazepines Scrn Urine Cocaine Screen U Marijuana (THC) Screen Ethyl Alcohol COVID-19 (ZANDRA) Negative COVID-19 [facility] See Note 02/11/22 02/12/22 23:30 07:30 WBC RBC Hgb Hct MCV MCH MCHC RDW Plt Count MPV Immature Gran % (Auto) Neut % (Auto) Lymph % (Auto) [place] % (Auto) Eos % (Auto) Baso % (Auto) Lymph # (Auto) [place] # (Auto) Eos # (Auto) Baso # (Auto) Abs Immat Gran (auto) Absolute Neuts (auto) Absolute Nucleated RBC Nucleated RBC % (auto) Sodium Potassium Chloride Carbon Dioxide Anion Gap BUN Creatinine Estim Creat Clear Calc Estimated GFR Random Glucose Calcium Magnesium Total Bilirubin AST ALT Alkaline Phosphatase Total Protein Albumin Urine Opiates Screen Not Detected Urine Fentanyl Screen Not Detected Ur Barbiturates Screen Not Detected Ur Phencyclidine Scrn Not Detected Ur Amphetamines Screen Not Detected U Benzodiazepines Scrn Not Detected Urine Cocaine Screen POSITIVE H U Marijuana (THC) Screen POSITIVE H Ethyl Alcohol < 10 COVID-19 (ZANDRA) COVID-19 [employer] Medications Medications Current Medications Acetaminophen (Acetaminophen 325 Mg Tablet) 650 mg PO Q6H PRN PRN Reason: Headache/Pain Mild Scale (1-3) Al Hydroxide/Mg Hydroxide (Magnesium Hydrox/Alum Hydrox 30 Ml Oral.Susp) 30 ml PO Q6H PRN PRN Reason: Heartburn/Nausea Benztropine Mesylate (Benztropine Mesylate 1 Mg Tablet) 1 mg PO BID PRN PRN Reason: Anxiety Duloxetine HCl (Duloxetine Hcl 60 Mg Capsule.Dr) 60 mg PO DAILY [facility] Last Admin: 02/13/22 08:56 Dose: 60 mg Documented by: Hydroxyzine HCl (Hydroxyzine Hcl 50 Mg Tablet) 50 mg PO Q4H PRN PRN Reason: Anxiety Hydroxyzine HCl (Hydroxyzine Hcl 25 Mg Tablet) 25 mg PO BEDTIME PRN PRN Reason: Anxiety Magnesium Hydroxide (Milk Of Magnesia 30 Ml Oral.Susp) 30 ml PO DAILY PRN PRN Reason: Constipation Mirtazapine (Mirtazapine 7.5 Mg Tablet) 7.5 mg PO BEDTIME PRN PRN Reason: Insomnia Last Admin: 02/12/22 21:40 Dose: 7.5 mg Documented by: Nicotine (Nicotine 21 Mg Patch.Td24) 21 mg TRANSDERMA DAILY [facility] Last Admin: 02/13/22 08:56 Dose: 21 mg Documented by: Nicotine Polacrilex (Nicotine Polacrilex 2 Mg Gum) 4 mg BUCCAL Q2H PRN PRN Reason: Nicotine Cravings Perphenazine (Perphenazine 4 Mg Tablet) 4 mg PO TID [facility] Last Admin: 02/13/22 15:41 Dose: 4 mg Documented by: Trazodone HCl (Trazodone Hcl 50 Mg Tablet) 50 mg PO BEDTIME PRN PRN Reason: Insomnia Allergies Allergies Allergy/AdvReac Type Severity Reaction Status Date / Time cefdinir [From OMNICEF] Allergy Unknown ANAPHYLAXIS Verified 11/04/21 09:45 Assessment & Plan Assessment & Plan (1) MDD (major depressive disorder), recurrent, severe, with psychosis: Status: Acute Code(s): F33.3 - Major depressive disorder, recurrent, severe with psychotic symptoms (2) Cocaine use disorder: Status: Acute Code(s): F14.10 - Cocaine abuse, uncomplicated Plan Adrian is a 31 y.o. male who carries a dx of cocaine use disorder, MDD with psychotic features. He presented to [facility] ED on 02/11/22 due to SI with a plan to drive into a tree, relapse on crack cocaine. Has been non-adherent on medications since discharge from [facility] one month ago s/p SA by carbon m onoxide poisoning, this was his first inpatient admission, no previous psych med trials. He was re-started on his med regimen in the ED. Utox positive for cocaine, cannabis. Denies recent alcohol abuse. Plan: Continue medications he was stabilized on at [place], which were restarted in the ED setting. Pt does not want further med adjustments. Interested in meeting with Recovery team. Q15 min safety checks, CV Monitor response to medications. Monitor for safety in the milieu. Discharge on stabilization. Patient seen. Chart reviewed. Discussed with team. Obtain collateral contact info?as needed I spent __60____ minutes with the patient and/or on the patient floor today, greater than?50% of which was spent counseling/coordinating care. Reason for contiued inpatient stay Substantial Risk for: harm to self
[2022-02-13 20:21] VITALS: BP 130/82; PULSE 66; RESP 18; TEMP 36.3; O2SAT 97
[2022-02-14] MEDS: Nicotine 21 MG PATCH.TD24 TRANSDERMA (09:24)
[2022-02-14] MEDS: DULoxetine HCl 60 MG CAPSULE.DR PO (09:24)
[2022-02-14] MEDS: Perphenazine 4 MG TABLET PO ×3 (09:25→20:23)
[2022-02-14 09:30] VITALS: BP 123/75; PULSE 68; RESP 20; TEMP 36.6; O2SAT 99
--- NOTE | 2022-02-14 15:38 | P.PNPSI_ITS ---
Subjective Subjective Date of Service: 02/14/22 Reason For Visit: SI Subjective Notes: 3 Day Interim History: met with patient. Discussed with Nursing. Patient had visitors today. Overall reports that mood is getting slightly better. Reports his main focus is trying to be honest with friends and family regarding drug use. Reports being motivated by things he could lose such as his mental health and well-being, work, girlfriend. Reports wanting psychiatrist, therapist intensive outpatient therapy and meetings. Reports he things will help him and also help gain trust with his family. Reported and sleep has been okay. [place] sedated on Remeron 7.5 mg and open to 3.75 mg. Has been social with peers. Attending groups. No SI or psychosis evident. No agitation. Three-day notice expires 02/17/2022 Medication Compliance: Yes Side effects from medications: No Attending Groups: Yes Review of Systems Acute medical concerns: No Review of Systems Review of Systems Yes all other systems are reviewed and are negative Mental Status Exam Mental Status Exam Narrative: Pleasant and engaged. Appropriately dressed in good hygiene. Organized. Affect appears less anxious and brighter. No SI. No HI. Future oriented. No psychosis. No agitation. Insight and judgment good Diagnostics Vital Signs (24Hr): Vital Signs - 24 hr 02/13/22 20:21 02/14/22 09:30 Temperature 97.4 F 97.9 F Pulse Rate 66 68 Respiratory Rate 18 20 Blood Pressure 130/82 123/75 Pulse Oximetry 97 99 BMI result Body Mass Index 23.7 Labs Results: 02/11/22 23:30 02/11/22 23:30 Medications Medications Current Medications Acetaminophen (Acetaminophen 325 Mg Tablet) 650 mg PO Q6H PRN PRN Reason: Headache/Pain Mild Scale (1-3) Al Hydroxide/Mg Hydroxide (Magnesium Hydrox/Alum Hydrox 30 Ml Oral.Susp) 30 ml PO Q6H PRN PRN Reason: Heartburn/Nausea Benztropine Mesylate (Benztropine Mesylate 1 Mg Tablet) 1 mg PO BID PRN PRN Reason: Anxiety Duloxetine HCl (Duloxetine Hcl 60 Mg Capsule.) 60 mg PO DAILY [facility] Last Admin: 02/14/22 09:24 Dose: 60 mg Documented by: Hydroxyzine HCl (Hydroxyzine Hcl 50 Mg Tablet) 50 mg PO Q4H PRN PRN Reason: Anxiety Hydroxyzine HCl (Hydroxyzine Hcl 25 Mg Tablet) 25 mg PO BEDTIME PRN PRN Reason: Anxiety Magnesium Hydroxide (Milk Of Magnesia 30 Ml Oral.Susp) 30 ml PO DAILY PRN PRN Reason: Constipation Mirtazapine (Mirtazapine 7.5 Mg Tablet) 3.75 mg PO BEDTIME [facility] Nicotine (Nicotine 21 Mg Patch.Td24) 21 mg TRANSDERMA DAILY [facility] Last Admin: 02/14/22 09:24 Dose: 21 mg Documented by: Nicotine Polacrilex (Nicotine Polacrilex 2 Mg Gum) 4 mg BUCCAL Q2H PRN PRN Reason: Nicotine Cravings Perphenazine (Perphenazine 4 Mg Tablet) 4 mg PO TID [facility] Last Admin: 02/14/22 15:26 Dose: 4 mg Documented by: Trazodone HCl (Trazodone Hcl 50 Mg Tablet) 50 mg PO BEDTIME PRN PRN Reason: Insomnia Allergies Allergies Allergy/AdvReac Type Severity Reaction Status Date / Time cefdinir [From OMNICEF] Allergy Unknown ANAPHYLAXIS Verified 11/04/21 09:45 Assessment & Plan Assessment & Plan (1) MDD (major depressive disorder), recurrent, severe, with psychosis: Status: Acute Code(s): F33.3 - Major depressive disorder, recurrent, severe with psychotic symptoms (2) Cocaine use disorder: Status: Acute Code(s): F14.10 - Cocaine abuse, uncomplicated Plan Adrian is a 31 y.o. male who carries a dx of cocaine use disorder, MDD with psychotic features. He presented to [facility] ED on 02/11/22 due to SI with a plan to drive into a tree, relapse on crack cocaine. Has been non-adherent on medications since discharge from [facility] one month ago s/p SA by carbon monoxi de poisoning, this was his first inpatient admission, no previous psych med trials. He was re-started on his med regimen in the ED. Utox positive for cocaine, cannabis. Denies recent alcohol abuse. Plan: Continue medications he was stabilized on at [facility], which were restarted in the ED setting. Pt does not want further med adjustments. Interested in meeting with Recovery team. Q15 min safety checks, CV Monitor response to medications. Monitor for safety in the milieu. Discharge on stabilization. Patient seen. Chart reviewed. Discussed with team. Obtain collateral contact info?as needed 02/14/2022: Lowered Remeron to 3.75 mg plus or minus discontinue same if unable to tolerate this. Otherwise no changes and three-day notice expires Wednesday02/17/2022. I spent minutes with the patient and/or on the patient floor today, greater than?50% of which was spent counseling/coordinating care. Reason for contiued inpatient stay Substantial Risk for: harm to self
[2022-02-14] MEDS: Acetaminophen 325 MG TABLET 650 MG PO (18:41)
[2022-02-14] MEDS: Mirtazapine 7.5 MG TABLET 3.75 MG PO (20:23)
[2022-02-14 20:26] VITALS: BP 135/71; PULSE 73; RESP 18; TEMP 36.8; O2SAT 97
[2022-02-15] MEDS: Nicotine 21 MG PATCH.TD24 TRANSDERMA (08:45)
[2022-02-15] MEDS: DULoxetine HCl 60 MG CAPSULE.DR PO (08:46)
[2022-02-15] MEDS: Perphenazine 4 MG TABLET PO ×3 (08:46→20:10)
[2022-02-15 09:00] VITALS: BP 117/58; PULSE 62; RESP 18; TEMP 36.6; O2SAT 98
--- NOTE | 2022-02-15 15:18 | HO.PSYCHPN ---
Subjective Subjective Date of Service: 02/15/22 Reason For Visit: SI Interim History: met with patient. Continues to report that mood is getting slightly better and main focus is being honest with friends and family regarding drug use. Still wants Psychiatrist, therapist intensive outpatient therapy and meetings. Reports he things will help him and also help gain trust with his family. Reported and sleep has been okay. Tolerated remeron 3.75mg last pm without sedation. Has been social with peers. Attending groups. No SI or psychosis evident. No agitation. Three-day notice expires 02/17/2022 Medication Compliance: Yes Side effects from medications: No Attending Groups: Yes Review of Systems Review of Systems Yes all other systems are reviewed and are negative Mental Status Exam Mental Status Exam Narrative: Pleasant and engaged. Appropriately dressed in good hygiene. Organized. Affect appears less anxious and brighter. No SI. No HI. Future oriented. No psychosis. No agitation. Insight and judgment good Diagnostics Vital Signs (24Hr): Vital Signs - 24 hr 02/14/22 20:26 02/15/22 09:00 Temperature 98.3 F 97.8 F Pulse Rate 73 62 Respiratory Rate 18 18 Blood Pressure 135/71 117/58 L Pulse Oximetry 97 98 BMI result Body Mass Index 23.7 Labs Results: 02/11/22 23:30 02/11/22 23:30 Medications Medications Current Medications Acetaminophen (Acetaminophen 325 Mg Tablet) 650 mg PO Q6H PRN PRN Reason: Headache/Pain Mild Scale (1-3) Last Admin: 02/14/22 18:41 Dose: 650 mg Documented by: Al Hydroxide/Mg Hydroxide (Magnesium Hydrox/Alum Hydrox 30 Ml Oral.Susp) 30 ml PO Q6H PRN PRN Reason: Heartburn/Nausea Benztropine Mesylate (Benztropine Mesylate 1 Mg Tablet) 1 mg PO BID PRN PRN Reason: Anxiety Duloxetine HCl (Duloxetine Hcl 60 Mg Capsule.Dr) 60 mg PO DAILY [facility] Last Admin: 02/15/22 08:46 Dose: 60 mg Documented by: Hydroxyzine HCl (Hydroxyzine Hcl 50 Mg Tablet) 50 mg PO Q4H PRN PRN Reason: Anxiety Hydroxyzine HCl (Hydroxyzine Hcl 25 Mg Tablet) 25 mg PO BEDTIME PRN PRN Reason: Anxiety Magnesium Hydroxide (Milk Of Magnesia 30 Ml Oral.Susp) 30 ml PO DAILY PRN PRN Reason: Constipation Mirtazapine (Mirtazapine 7.5 Mg Tablet) 3.75 mg PO BEDTIME [facility] Last Admin: 02/14/22 20:23 Dose: 3.75 mg Documented by: Nicotine (Nicotine 21 Mg Patch.Td24) 21 mg TRANSDERMA DAILY [facility] Last Admin: 02/15/22 08:45 Dose: 21 mg Documented by: Nicotine Polacrilex (Nicotine Polacrilex 2 Mg Gum) 4 mg BUCCAL Q2H PRN PRN Reason: Nicotine Cravings Perphenazine (Perphenazine 4 Mg Tablet) 4 mg PO TID [facility] Last Admin: 02/15/22 14:51 Dose: 4 mg Documented by: Trazodone HCl (Trazodone Hcl 50 Mg Tablet) 50 mg PO BEDTIME PRN PRN Reason: Insomnia Allergies Allergies Allergy/AdvReac Type Severity Reaction Status Date / Time cefdinir [From OMNICEF] Allergy Unknown ANAPHYLAXIS Verified 11/04/21 09:45 Assessment & Plan Assessment & Plan (1) MDD (major depressive disorder), recurrent, severe, with psychosis: Status: Acute Code(s): F33.3 - Major depressive disorder, recurrent, severe with psychotic symptoms (2) Cocaine use disorder: Status: Acute Code(s): F14.10 - Cocaine abuse, uncomplicated Plan Adrian is a 31 y.o. male who carries a dx of cocaine use disorder, MDD with psychotic features. He presented to [facility] ED on 02/11/22 due to SI with a plan to drive into a tree, relapse on crack cocaine. Has been non-adherent on medications since discharge from [facility] one month ago s/p SA by carbon monoxide poisoning, this was his first inpatient admission, no previous psych med trials. He was re-started on his med regimen in the ED. Utox positive for cocaine, cannabis. Denies recent alcohol abuse. Plan: Continue medications he was stabilized on at [facility], which were restarted in the ED setting. Pt does not want further med adjustments. Interested in meeting with Recovery team. Q15 min safety checks, CV Monitor response to medications. Monitor for safety in the milieu. Discharge on stabilization. Patient seen. Chart reviewed. Discussed with team. Obtain collateral contact info?as needed 02/14/2022: Lowered Remeron to 3.75 mg plus or minus discontinue same if unable to tolerate this. Otherwise no changes and three-day notice expires Wednesday02/17/2022. 02/15: no changes I spent minutes with the patient and/or on the patient floor today, greater than?50% of which was spent counseling/coordinating care. Reason for contiued inpatient stay Substantial Risk for: harm to self
[2022-02-15 20:07] VITALS: BP 127/71; PULSE 83; RESP 16; TEMP 36.6; O2SAT 98
[2022-02-15] MEDS: Mirtazapine 7.5 MG TABLET 3.75 MG PO (20:10)
[2022-02-16 08:00] VITALS: BP 119/63; PULSE 71; RESP 16; TEMP 36.6; O2SAT 99
[2022-02-16] MEDS: Nicotine 21 MG PATCH.TD24 TRANSDERMA (09:23)
[2022-02-16] MEDS: DULoxetine HCl 60 MG CAPSULE.DR PO (09:23)
[2022-02-16] MEDS: Perphenazine 4 MG TABLET PO ×3 (09:23→20:44)
--- NOTE | 2022-02-16 15:28 | HO.PSYCHPN ---
Subjective Subjective Date of Service: 02/16/22 Reason For Visit: SI Interim History: pt found resting in his bed. calm, cooperative. passive. sleeping well, no longer groggy in the morning since remeron dosing decreased to 3.75 mg QHS. denies SI. reports he and his GF are talking. planning to discharge at 1100 tomorrow. per staff, 3-day up tomorrow. limited insight. showered, eating well. not attending groups, napping days. slept well. Mental Status Exam Mental Status Exam Narrative: A&O. Well groomed, adequate hygiene, normal body habitus, long hair. Good eye contact, attentive. No Tics or Tremors. No abnormal involuntary movements. Calm, not overly engaged but willing to answer questions with brief responses. Non-pressured speech, non-spontaneous, quiet vocal volume. No prolonged speech latency or dysarthria. affect is constricted. Denies SI. no SIB/HI/AVH expressed. Thoughts are somewhat slowed. No known cognitive or memory impairment. Insight/ Judgment fair and adequate. Diagnostics Vital Signs (24Hr): Vital Signs - 24 hr 02/15/22 20:07 02/16/22 08:00 Temperature 97.8 F 97.8 F Pulse Rate 83 71 Respiratory Rate 16 16 Blood Pressure 127/71 119/63 Pulse Oximetry 98 99 BMI result Body Mass Index 23.7 Labs Results: 02/11/22 23:30 02/11/22 23:30 Medications Medications Current Medications Acetaminophen (Acetaminophen 325 Mg Tablet) 650 mg PO Q6H PRN PRN Reason: Headache/Pain Mild Scale (1-3) Last Admin: 02/14/22 18:41 Dose: 650 mg Documented by: Al Hydroxide/Mg Hydroxide (Magnesium Hydrox/Alum Hydrox 30 Ml Oral.Susp) 30 ml PO Q6H PRN PRN Reason: Heartburn/Nausea Benztropine Mesylate (Benztropine Mesylate 1 Mg Tablet) 1 mg PO BID PRN PRN Reason: Anxiety Duloxetine HCl (Duloxetine Hcl 60 Mg Capsule.) 60 mg PO DAILY [facility] Last Admin: 02/16/22 09:23 Dose: 60 mg Documented by: Hydroxyzine HCl (Hydroxyzine Hcl 50 Mg Tablet) 50 mg PO Q4H PRN PRN Reason: Anxiety Hydroxyzine HCl (Hydroxyzine Hcl 25 Mg Tablet) 25 mg PO BEDTIME PRN PRN Reason: Anxiety Magnesium Hydroxide (Milk Of Magnesia 30 Ml Oral.Susp) 30 ml PO DAILY PRN PRN Reason: Constipation Mirtazapine (Mirtazapine 7.5 Mg Tablet) 3.75 mg PO BEDTIME [facility] Last Admin: 02/15/22 20:10 Dose: 3.75 mg Documented by: Nicotine (Nicotine 21 Mg Patch.Td24) 21 mg TRANSDERMA DAILY [facility] Last Admin: 02/16/22 09:23 Dose: 21 mg Documented by: Nicotine Polacrilex (Nicotine Polacrilex 2 Mg Gum) 4 mg BUCCAL Q2H PRN PRN Reason: Nicotine Cravings Perphenazine (Perphenazine 4 Mg Tablet) 4 mg PO TID [facility] Last Admin: 02/16/22 09:23 Dose: 4 mg Documented by: Trazodone HCl (Trazodone Hcl 50 Mg Tablet) 50 mg PO BEDTIME PRN PRN Reason: Insomnia Allergies Allergies Allergy/AdvReac Type Severity Reaction Status Date / Time cefdinir [From OMNICEF] Allergy Unknown ANAPHYLAXIS Verified 11/04/21 09:45 Assessment & Plan Assessment & Plan (1) MDD (major depressive disorder), recurrent, severe, with psychosis: Status: Acute Code(s): F33.3 - Major depressive disorder, recurrent, severe with psychotic symptoms (2) Cocaine use disorder: Status: Acute Code(s): F14.10 - Cocaine abuse, uncomplicated Plan Adrian is a 31 y.o. male who carries a dx of cocaine use disorder, MDD with psychotic features. He presented to [facility] on 02/11/22 due to SI with a plan to drive into a tree, relapse on crack cocaine. Has been non-adherent on medications since discharge from [facility] one month ago s/p SA by carbon monoxide poisoning, this was his first inpatient admission, no previous psych med trials. He was re-started on his med regimen in the ED. Utox positive for cocaine, cannabis. Denies recent alcohol abuse. Plan: Continue medications he was stabilized on at [facility], which were restarted in the ED setting. Pt does not want further med adjustments. Interested in meeting with Recovery team. Q15 min safety checks, CV Monitor response to medications. Monitor for safety in the milieu. Discharge on stabilization. Patient seen. Chart reviewed. Discussed with team. Obtain collateral contact info?as needed 02/14/2022: Lowered Remeron to 3.75 mg plus or minus discontinue same if unable to tolerate this. Otherwise no changes and three-day notice expires Wednesday02/17/2022. 02/15: no changes 02/16: no changes. DC tomorrow at 1100. I spent __20____ minutes with the patient and/or on the patient floor today, greater than?50% of which was spent counseling/coordinating care. Reason for contiued inpatient stay Substantial Risk for: harm to self, inability to function and rapid decompensation
[2022-02-16 20:36] VITALS: BP 132/75; PULSE 84; RESP 16; TEMP 36.7; O2SAT 96
[2022-02-16] MEDS: Mirtazapine 7.5 MG TABLET 3.75 MG PO (20:44)
[2022-02-17] MEDS: Nicotine 21 MG PATCH.TD24 TRANSDERMA (08:33)
[2022-02-17] MEDS: Perphenazine 4 MG TABLET PO (08:34)
[2022-02-17] MEDS: DULoxetine HCl 60 MG CAPSULE.DR PO (08:34)
[2022-02-17 09:10] VITALS: BP 116/58; PULSE 69; RESP 18; TEMP 36.4; O2SAT 100
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
== END 2022-02-17 11:03 | disposition home or self-care (01) | DRG 751 ==
LOC: HO.ED 02-12 00:25 → HO.PADLT16 02-12 15:45
PROVIDERS: Physician Assistant; Admitting Provider Psychiatry & Neurology Psychiatry; Emergency Provider Emergency Medicine; Visit Provider Psychiatry & Neurology Psychiatry
DX: F33.3 Major depressive disorder, recurrent, severe with psychotic symptoms (principal); R45.851 Suicidal ideations; F14.10 Cocaine abuse, uncomplicated; F17.210 Nicotine dependence, cigarettes, uncomplicated; Z71.6 Tobacco abuse counseling; Z20.822 Contact with and (suspected) exposure to COVID-19; Z88.8 Allergy status to other drugs, medicaments and biological substances; Z79.899 Other long term (current) drug therapy
CPT/HCPCS: 36415; 80053; 80307; 82077; 83735; 85025; 87635; 93005; 99285

== ENCOUNTER 2022-04-29 03:46 | Inpatient (IN) | payer OTHER, SELFPAY ==
--- NOTE | 2022-04-29 | ECG_ITS ---
Test Reason : med clearance Blood Pressure : / mmHG Vent. Rate : 061 BPM Atrial Rate : 061 BPM P-R Int : 162 ms QRS Dur : 084 ms QT Int : 402 ms P-R-T Axes : 034 030 047 degrees QTc Int : 404 ms Normal sinus rhythm Normal ECG When compared with ECG of 12-FEB-2022 14:13, No significant change was found Referred By: iTno Dueñas Electronically Signed By:LORNA WIGGINS MD
[2022-04-29 03:53] VITALS: BP 155/105; PULSE 107; RESP 18; TEMP 36.6; O2SAT 97; BMI 26.9
[2022-04-29 04:09] VITALS: BP 155/105; PULSE 107; RESP 17; TEMP 37.2; O2SAT 97
--- NOTE | 2022-04-29 04:26 | ED.PSYCH ---
HPI - Psych General Chief Complaint: Psychiatric Symptoms Stated Complaint: si and drug use Time Seen by Provider: 04/29/22 04:26 Source: patient and EMS Mode of arrival: EMS Limitations: no limitations History of Present Illness HPI Narrative: 31-year-old male came in for evaluation of SI. Patient is going through problem and break-up with his significant other patient used cocaine last night stated that he needed to get out of the house stated that he is going to kill himself but patient denies any plan. Patient overall feels stressed out and depressed. Declined any auditory or visual hallucination. Related Data Home Medications Medication Instructions Recorded Confirmed benztropine 1 mg tablet 1 tab PO BID PRN Anxiety 02/12/22 04/29/22 hydroxyzine pamoate 50 mg capsule 1 cap PO Q4H PRN Anxiety 02/12/22 04/29/22 Previous Rx's Medication Instructions Recorded duloxetine 60 mg capsule,delayed 1 cap PO DAILY 30 days #30 caps 02/17/22 release mirtazapine 7.5 mg tablet 3.75 mg PO BEDTIME #0 tabs 02/17/22 perphenazine 4 mg tablet 4 mg PO TID 30 days #90 tabs 02/17/22 Allergies Allergy/AdvReac Type Severity Reaction Status Date / Time cefdinir [From OMNICEF] Allergy Unknown ANAPHYLAXIS Verified 11/04/21 09:45 Review of Systems Review of Systems: all other systems are reviewed and are negative Constitutional: Reports as per HPI and Reports no additional constitutional complaints Eyes: Reports as per HPI and Reports no additional eye complaints Reports system reviewed and no additional complaints, except as documented Cardiovascular: Reports as per HPI and Reports no additional cardiovascular complaints Respiratory: Reports as per HPI and Reports no additional respiratory complaints Gastrointestinal: Reports as per HPI and Reports no additional gastrointestinal complaints Genitourinary: Reports no additional female genitourinary complaints Musculoskeletal: Reports no additional musculoskeletal complaints Skin/Breast: Reports system reviewed and no additional complaints, except as docu Psychiatric: Reports no additional psychiatric complaints Endocrine: Reports no additional endocrine complaints Hematologic/Lymphatic: Reports no additional hematologic/lymphatic complaints Allergic/Immunologic: Reports no additional allergic/immunologic complaints Reports system reviewed and no additional complaints, except as documented and Reports Abnormal speech present [facility] Past Medical History Medical History No known health problems Social History Social History Household Members: None Housing: Apartment Do you presently have visiting nurse or other home services: No Alcohol intake: current Patient Tobacco Use Status: Current everyday Tobacco user Tobacco use type: Cigarette Cigarette Packs Per Day: 1 Cigarettes Per Day: 20.0 Second Hand Smoke Exposure: No Substance Use Type: Crack/Cocaine and Marijuana Advance Directives: No service: Yes (Pt served in the [employer] for 3 1/2 years before being discharged.) Sexual orientation: Straight/Heterosexual Physical Exam Vital Signs: Vital Signs: Last Vital Signs Temp 99.0 F 04/29/22 04:09 Pulse 107 H 04/29/22 04:09 Resp 17 04/29/22 04:09 BP 155/105 H 04/29/22 04:09 Pulse Ox 97 04/29/22 04:09 O2 Del Method 04/29/22 04:09 BMI result Body Mass Index 26.9 vital signs have been reviewed as appeared to be correct. Blood pressure normal. Heart rate normal. Respiration rate normal. Temperature normal. Oxygen saturation normal. Appearance: Alert. Oriented X3. No acute distress. Head: Normal external exam. Normocephalic. Atraumatic. No Patton signs noted. No raccoon eyes noted Eyes: PERRLA. EOMI. Conjunctiva and sclera normal. Eyelids normal. ENT: TM's Normal. Pharynx normal. Uvula midline. Moist mucous membranes. No trismus noted. No drooling noted. No muffled voice noted. Neck: Normal inspection. Neck supple. FROM. No adenopathy. Thyroid Normal. No meningeal signs. No neck mass noted. CVS: Normal heart rate and rhythm. Heart sound normal. No murmurs noted. Pulses normal throughout. Respiratory: No respiratory distress. Painless inspiration. Breath sounds normal. No wheezes/rales/rhonchi noted. Chest nontender. No accessory muscle usage noted or decreased air movement noted. Abdomen: Soft and nontender. Bowel sounds normal in all 4 quadrants. No distention noted. No organomegaly noted. No visible injury noted. Back: No CVA tenderness. Full range of motion noted. Skin: Skin warm and dry. Normal skin color. Normal skin turgor. No rashes/lesions/lacerations noted. Extremities: No lower extremity edema. Extremities exhibit normal range of motion. Extremities nontender. Neuro: Oriented X 3. Cranial nerve exam: II-XII are grossly intact No motor deficit. No sensory deficit. Reflexes normal. Patient Orientation: Person, Place, Time and Situation Level of Consciousness: Awake, Appropriate and Alert Patient Behavior: Appropriate, Guarded, Cooperative and Anxious Mood Description: Constricted, Blunted and Apprehensive Affect Description: Constricted, Blunted and Apprehensive Patient Cognition Impaired: No Ability to Follow Directions: Excellent Speech Pattern: Clear, Appropriate and Spontaneous Speech Memory Description: Intact, Immediate Intact and Short Term Intact Hallucinations: None Delusions: Not Present Thought Process: Intact Thought Content: positive for Intact, positive for Logical, denies Suicidal Ideation and denies Homicidal Ideation. Depressive Symptoms: Not present Judgement: Good Judgement and Insight: Intact. Course Course Course Narrative: 31-year-old male with history of bipolar previous history of hospitalization for mental etiology, patient of his psych medication for a while, came in with threat of SI after using drugs, patient is redirectable and waiting for [facility] in for further evaluation. [facility] - Psych Lab Data Labs: Lab Results 04/29/22 Range/Units 04:35 COVID-19 ([facility]) Negative (Negative) COVID-19 Clin Com See Note Discharge Plan Discharge Clinical Impression: Cocaine use disorder, Depression Patient Disposition: Still a Patient Prescriptions: No Action hydroxyzine pamoate 50 mg capsule 1 cap PO Q4H PRN (Reason: Anxiety) benztropine 1 mg tablet 1 tab PO BID PRN (Reason: Anxiety) perphenazine 4 mg Tablet 4 mg PO TID 30 Days Qty: 90 0RF mirtazapine 7.5 mg Tablet 3.75 mg PO BEDTIME Qty: 0 0RF duloxetine 60 mg capsule,delayed release(DR/EC) 1 cap PO DAILY 30 Days Qty: 30 0RF
[2022-04-29 04:57] LABS: COVID-19 Test Negative (Negative)
--- NOTE | 2022-04-29 07:16 | PC.NURSE ---
patient appears to remain asleep at present respirations are even and unlabored patient appears in no distress
--- NOTE | 2022-04-29 07:34 | PC.NURSE ---
Patient arrived at 0400, resting since then, awaiting care team assessment, med rec completed, patient is off his medication since february 17 per record, VSS, behavior appropriate and non concerning, will continue to monitor.
[2022-04-29] MEDS: Ibuprofen 600 MG TABLET PO (08:24)
[2022-04-29] MEDS: DULoxetine HCl 60 MG CAPSULE.DR PO (10:03)
[2022-04-29] MEDS: Perphenazine 4 MG TABLET PO ×2 (10:03→14:38)
[2022-04-29 11:21] VITALS: BP 122/70; PULSE 64; RESP 16; TEMP 36.6; O2SAT 96
[2022-04-29 14:44] LABS: MANUAL DIFF FLAG NO
[2022-04-29 14:48] LABS: Basophils Percent Auto 0.5 % (0-2); Eosinophils Absolute Auto 0.3 X10*3/uL (0.0-0.4); Eosinophils Percent Auto 3.4 % (0-4); Hematocrit 41.3 % (42.0-52.0); Hemoglobin 14.6 g/dl (14.0-18.0); Imm Gran Abs Auto 0.02 X10*3/uL (0.00-0.03); Imm Gran Pct Auto 0.2 % (0.0-0.4); Lymphocytes Absolute Auto 2.7 X10*3/uL (1.2-4.9); Lymphocytes Percent Auto 30.2 % (20-40); Mean Corpuscular HGB Conc 35.4 g/dl (31.0-36.0); Mean Corpuscular Hemoglobin 30.1 pg (27.0-33.0); Mean Corpuscular Volume 85.2 fL (80.0-98.0); Mean Platelet Volume 8.8 fL (9.4-12.4); Monocytes Percent Auto 10.8 % (2-11); Neutrophils Absolute Auto 4.9 x10*3/uL (2.0-8.3); Neutrophils Percent Auto 54.9 % (45-73); Platelet Count 285 X10*3/uL (160-400); Red Blood Count 4.85 X10*6/uL (4.60-5.80); White Blood Count 8.9 X10*3/uL (4.8-10.8)
[2022-04-29 15:20] LABS: Alanine Aminotransferase 25 U/L (0-40); Albumin Level 4.3 g/dL (3.5-5.0); Alkaline Phosphatase 92 U/L (39-117); Anion Gap 12 (12-20); Aspartate Amino Transferase 21 U/L (5-37); Bilirubin Total 0.9 mg/dL (0.0-1.0); Blood Urea Nitrogen 17 mg/dL (9-16); Calcium 9.1 mg/dL (8.4-10.2); Carbon Dioxide 28 mmol/L (22-29); Chloride 106 mmol/L (96-108); Creatinine Clr Calc Pharmacy 108.1; Estimated Glomerular Filt Rate > 60; Glucose Fasting 94 mg/dL (60-99); Potassium 3.8 mmol/L (3.3-5.1); Sodium 142 mmol/L (135-145); Total Protein 6.7 g/dL (6.5-8.0)
[2022-04-29] MEDS: Nicotine 21 MG PATCH.TD24 TRANSDERMA (16:20)
[2022-04-29 16:41] VITALS: BMI 27.6
[2022-04-29 18:28] VITALS: BP 136/79; PULSE 84; RESP 16; TEMP 37; O2SAT 97
[2022-04-29] MEDS: diphenhydrAMINE HCL 25 MG TABLET 50 MG PO (20:43)
[2022-04-29] MEDS: Perphenazine 8 MG TABLET PO (20:43)
[2022-04-29] MEDS: Mirtazapine 15 MG TABLET PO (20:43)
[2022-04-29] MEDS: traZODone HCL 100 MG TABLET PO (20:43)
--- NOTE | 2022-04-29 22:15 | PC.ADMIT ---
Pt is a 31years old male admitted on a CV for inpatient level of care for conerns of SI after pt stated that he was going to kill himself. Pt has a history of drug use including crack cocaine. Pt is alert and oriented X4. VSS. Covid negative, Tox positive for cocaine. Pt reports experiencing depression and stress . Pt denies SI at this time and denies No hallucination. Pt is labile with flat affect. soft spoken with few word answers. Speech is soft with low tone but regular rate and rhythm. Pt has recently been discharged from a section [facility] out of [facility]. Pt has a hx of alcohol and crack cocaine use. Pt has a hx of SI with a recent (December 2021) suicide attempt. Admission orders obtained.
[2022-04-30 06:00] VITALS: BP 100/57; RESP 14; TEMP 36.9; O2SAT 96
[2022-04-30 07:00] VITALS: BMI 27.8; BMI 31.4
[2022-04-30] MEDS: Nicotine 21 MG PATCH.TD24 TRANSDERMA (08:59)
[2022-04-30] MEDS: diphenhydrAMINE HCL 25 MG TABLET 50 MG PO ×3 (08:59→20:35)
[2022-04-30] MEDS: DULoxetine HCl 60 MG CAPSULE.DR PO (08:59)
[2022-04-30] MEDS: Perphenazine 8 MG TABLET PO ×3 (08:59→20:35)
[2022-04-30 09:12] LABS: Estimated Average Glucose 97 mg/dL
[2022-04-30 09:36] LABS: Cholesterol 157 mg/dL; HDL Cholesterol 43 mg/dL; LDL Cholesterol Calculated 95 mg/dl; Triglycerides 95 mg/dL
[2022-04-30 09:57] LABS: Free T4 (Free Thyroxine) 0.91 ng/dL (0.71-1.85)
[2022-04-30 10:58] LABS: Folate 7.4 ng/mL (> or = 4.0); Vitamin B12 305 pg/mL (200-900)
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
[2022-04-30 17:34] VITALS: BP 122/63; PULSE 64; RESP 16; TEMP 36.6; O2SAT 98
[2022-04-30] MEDS: Mirtazapine 15 MG TABLET PO (20:36)
[2022-04-30] MEDS: traZODone HCL 100 MG TABLET PO (20:36)
[2022-05-01 08:30] VITALS: BP 107/59; PULSE 58; TEMP 36.9
[2022-05-01] MEDS: Nicotine 21 MG PATCH.TD24 TRANSDERMA (09:11)
[2022-05-01] MEDS: Perphenazine 8 MG TABLET PO ×3 (09:11→21:09)
[2022-05-01] MEDS: DULoxetine HCl 60 MG CAPSULE.DR PO (09:11)
[2022-05-01] MEDS: diphenhydrAMINE HCL 25 MG TABLET 50 MG PO ×3 (09:11→21:09)
[2022-05-01 16:35] VITALS: BP 129/72; PULSE 73; TEMP 37
--- NOTE | 2022-05-01 17:03 | P.PNPSI_ITS ---
Subjective Subjective Date of Service: 05/01/22 Reason For Visit: Depression W/Suicidal Ideation Cocaine Cannabis Subjective Notes: 3 Day Healthcare Proxy: No Guardianship: No Medical Problems Affecting Mental Status: No Interim History: Remains isolative, depressed. In bed when we met. Alert, oriented, denies sx. Anergic-no current interest in treatment Medication Compliance: Yes Side effects from medications: No Attending Groups: No Review of Systems Acute medical concerns: No Medical Review of Systems: unchanged Review of Systems Review of Systems Yes all other systems are reviewed and are negative Psychiatric: Reports depression, Reports hopelessness, Reports anhedonia and Reports suicidal ideation Mental Status Exam Mental Status Exam Patient Appearance: Fatigued Patient Orientation: Person, Place, Time and Situation Level of Consciousness: Alert Patient Behavior: Guarded, Cooperative, Fatigued and Poor Eye Contact Mood Description: Depressed Affect Description: Flat Patient Cognition Impaired: No Ability to Follow Directions: Good Speech Pattern: Spontaneous Speech Memory Description: Intact Hallucinations: None Delusions: Not Present Perceptual Disturbances: Derealization Thought Process: Rumination Thought Content: positive for Perseveration and positive for Suicidal Ideation Depressive Symptoms: Thoughts of /Suicide Judgement: Fair Diagnostics Vital Signs (24Hr): Vital Signs - 24 hr 04/30/22 17:34 05/01/22 08:30 Temperature 98 F 98.5 F Pulse Rate 64 58 Respiratory Rate 16 Blood Pressure 122/63 107/59 L Pulse Oximetry 98 Oxygen Delivery Method Room Air BMI result Body Mass Index 27.8 Labs Results: 04/29/22 14:31 04/29/22 14:31 Labs: Laboratory Results - last 48 hr 04/30/22 04/30/22 04/30/22 08:12 08:12 08:12 Estimat Average Glucose 97 Hemoglobin A1c % 5.0 Magnesium 2.0 Triglycerides 95 Cholesterol 157 LDL Cholesterol, Calc 95 HDL Cholesterol 43 Vitamin B12 305 Folate 7.4 TSH 1.60 Free T4 0.91 Medications Medications Current Medications Acetaminophen (Acetaminophen 325 Mg Tablet) 650 mg PO Q6H PRN PRN Reason: Headache/Pain Mild Scale (1-3) Al Hydroxide/Mg Hydroxide (Magnesium Hydrox/Alum Hydrox 30 Ml Oral.Susp) 30 ml PO Q6H PRN PRN Reason: Heartburn/Nausea Benztropine Mesylate (Benztropine Mesylate 1 Mg Tablet) 1 mg PO BID PRN PRN Reason: Anxiety Diphenhydramine HCl (Diphenhydramine Hcl 25 Mg Tablet) 50 mg PO TID [facility] Last Admin: 05/01/22 16:35 Dose: 50 mg Duloxetine HCl (Duloxetine Hcl 60 Mg Capsule.Dr) 60 mg PO DAILY [facility] Last Admin: 05/01/22 09:11 Dose: 60 mg Hydroxyzine HCl (Hydroxyzine Hcl 50 Mg Tablet) 50 mg PO Q4H PRN PRN Reason: Anxiety Magnesium Hydroxide (Milk Of Magnesia 30 Ml Oral.Susp) 30 ml PO DAILY PRN PRN Reason: Constipation Mirtazapine (Mirtazapine 15 Mg Tablet) 15 mg PO BEDTIME [facility] Last Admin: 04/30/22 20:36 Dose: 15 mg Nicotine (Nicotine 21 Mg Patch.Td24) 21 mg TRANSDERMA DAILY [facility] Last Admin: 05/01/22 09:11 Dose: 21 mg Perphenazine (Perphenazine 8 Mg Tablet) 8 mg PO TID [facility] Last Admin: 05/01/22 16:35 Dose: 8 mg Trazodone HCl (Trazodone Hcl 100 Mg Tablet) 100 mg PO BEDTIME [facility] Last Admin: 04/30/22 20:36 Dose: 100 mg Allergies Allergies Allergy/AdvReac Type Severity Reaction Status Date / Time cefdinir [From OMNICEF] Allergy Unknown ANAPHYLAXIS Verified 11/04/21 09:45 Assessment & Plan Assessment & Plan (1) Recurrent major depression-severe: Status: Acute Code(s): F33.2 - Major depressive disorder, recurrent severe without psychotic features (2) Alcohol use disorder, severe, dependence: Status: Acute Code(s): F10.20 - Alcohol dependence, uncomplicated (3) Cocaine use disorder, severe, dependence: Status: Acute Code(s): F14.20 - Cocaine dependence, uncomplicated Plan 05/01/22: TDN to 05/04/22 Pt presents as depressed, anergic. No milieu participation Declines medication interventions Spending most of his time in his room, in bed. I spent minutes with the patient and/or on the patient floor today, greater than?50% of which was spent counseling/coordinating care. Patient educated on: therapeutic strategies Informed Consent: understands Reason for contiued inpatient stay Substantial Risk for: harm to self, inability to function and rapid decompensation
[2022-05-01] MEDS: Mirtazapine 15 MG TABLET PO (21:09)
[2022-05-01] MEDS: traZODone HCL 100 MG TABLET PO (21:09)
[2022-05-02 06:00] VITALS: BP 118/64; PULSE 69; RESP 16; TEMP 36.9; O2SAT 97
[2022-05-02] MEDS: diphenhydrAMINE HCL 25 MG TABLET 50 MG PO ×3 (09:27→20:17)
[2022-05-02] MEDS: DULoxetine HCl 60 MG CAPSULE.DR PO (09:27)
[2022-05-02] MEDS: Perphenazine 8 MG TABLET PO ×3 (09:28→20:17)
[2022-05-02] MEDS: Nicotine 21 MG PATCH.TD24 TRANSDERMA (09:29)
[2022-05-02 16:18] VITALS: BP 107/59; PULSE 74; RESP 16; TEMP 37.1; O2SAT 98
[2022-05-02] MEDS: traZODone HCL 100 MG TABLET PO (20:16)
[2022-05-02] MEDS: Mirtazapine 15 MG TABLET PO (20:18)
--- NOTE | 2022-05-02 23:20 | HO.PSYCHPN ---
Subjective Subjective Date of Service: 05/02/22 Reason For Visit: Depression W/Suicidal Ideation Cocaine Cannabis Subjective Notes: Mccormack Warning and Conditional Voluntary Healthcare Proxy: No Guardianship: No Medical Problems Affecting Mental Status: No Interim History: Patient seen and discussed with team. Patient evaluated today and upon interview pt reports he is good and that he is taking his meds, has a psych appointment set up for when he leaves at [facility] in [place], likes the benadryl because perphenazine gives me the neck jerk, denies that it is sedating. Denies SI/SIB. Feels safe. Denies AH. went to one group.? Medication Compliance: Yes Side effects from medications: No Attending Groups: Intermittent Review of Systems Acute medical concerns: No Medical Review of Systems: unchanged Mental Status Exam Mental Status Exam Narrative: Patient Appearance: Fatigued Patient Orientation: Person, Place, Time and Situation Level of Consciousness: Alert Patient Behavior: Guarded, Cooperative, Fatigued and Poor Eye Contact Mood Description: Depressed Affect Description: Flat Patient Cognition Impaired: No Ability to Follow Directions: Good Speech Pattern: Spontaneous Speech Memory Description: Intact Hallucinations: None Delusions: Not Present Perceptual Disturbances: Derealization Thought Process: Rumination Thought Content: positive for Perseveration and positive for Suicidal Ideation Depressive Symptoms: Thoughts of /Suicide Judgment: Fair Diagnostics Vital Signs (24Hr): Vital Signs - 24 hr 05/03/22 06:00 Temperature 98.1 F Pulse Rate 71 Blood Pressure 121/67 Pulse Oximetry 98 Oxygen Delivery Method Room Air BMI result Body Mass Index 27.8 Labs Results: 04/29/22 14:31 04/29/22 14:31 Medications Medications Current Medications Acetaminophen (Acetaminophen 325 Mg Tablet) 650 mg PO Q6H PRN PRN Reason: Headache/Pain Mild Scale (1-3) Al Hydroxide/Mg Hydroxide (Magnesium Hydrox/Alum Hydrox 30 Ml Oral.Susp) 30 ml PO Q6H PRN PRN Reason: Heartburn/Nausea Benztropine Mesylate (Benztropine Mesylate 1 Mg Tablet) 1 mg PO BID PRN PRN Reason: Anxiety Diphenhydramine HCl (Diphenhydramine Hcl 25 Mg Tablet) 50 mg PO TID [facility] Last Admin: 05/03/22 14:10 Dose: 50 mg Duloxetine HCl (Duloxetine Hcl 60 Mg Capsule.Dr) 60 mg PO DAILY [facility] Last Admin: 05/03/22 08:34 Dose: 60 mg Hydroxyzine HCl (Hydroxyzine Hcl 50 Mg Tablet) 50 mg PO Q4H PRN PRN Reason: Anxiety Magnesium Hydroxide (Milk Of Magnesia 30 Ml Oral.Susp) 30 ml PO DAILY PRN PRN Reason: Constipation Mirtazapine (Mirtazapine 15 Mg Tablet) 15 mg PO BEDTIME [facility] Last Admin: 05/02/22 20:18 Dose: 15 mg Nicotine (Nicotine 21 Mg Patch.Td24) 21 mg TRANSDERMA DAILY [facility] Last Admin: 05/03/22 08:34 Dose: 21 mg Perphenazine (Perphenazine 8 Mg Tablet) 8 mg PO TID [facility] Last Admin: 05/03/22 14:11 Dose: 8 mg Trazodone HCl (Trazodone Hcl 100 Mg Tablet) 100 mg PO BEDTIME [facility] Last Admin: 05/02/22 20:16 Dose: 100 mg Allergies Allergies Allergy/AdvReac Type Severity Reaction Status Date / Time cefdinir [From OMNICEF] Allergy Unknown ANAPHYLAXIS Verified 11/04/21 09:45 Assessment & Plan Assessment & Plan (1) Recurrent major depression-severe: Status: Acute Code(s): F33.2 - Major depressive disorder, recurrent severe without psychotic features (2) Alcohol use disorder, severe, dependence: Status: Acute Code(s): F10.20 - Alcohol dependence, uncomplicated (3) Cocaine use disorder, severe, dependence: Status: Acute Code(s): F14.20 - Cocaine dependence, uncomplicated Plan 05/01/22: TDN to 05/04/22 Pt presents as depressed, anergic. No milieu participation Declines medication interventions Spending most of his time in his room, in bed. 05/02/2022: No changes to current treatment plan I spent minutes with the patient and/or on the patient floor today, greater than?50% of which was spent counseling/coordinating care. Patient educated on: medication risk/benefits Reason for contiued inpatient stay Substantial Risk for: rapid decompensation and med/psych decompensation
[2022-05-03 06:00] VITALS: BP 121/67; PULSE 71; TEMP 36.7; O2SAT 98
[2022-05-03] MEDS: Perphenazine 8 MG TABLET PO ×3 (08:34→20:21)
[2022-05-03] MEDS: Nicotine 21 MG PATCH.TD24 TRANSDERMA (08:34)
[2022-05-03] MEDS: diphenhydrAMINE HCL 25 MG TABLET 50 MG PO ×3 (08:34→20:21)
[2022-05-03] MEDS: DULoxetine HCl 60 MG CAPSULE.DR PO (08:34)
--- NOTE | 2022-05-03 14:46 | P.PNPSI_ITS ---
Subjective Subjective Date of Service: 05/03/22 Reason For Visit: Depression W/Suicidal Ideation Cocaine Cannabis Subjective Notes: Conditional Voluntary Interim History: Chart reviewed. Discussed with Nursing. Overall reports feeling that mood is improving. No SI. No psychosis. Sleep okay. Is pretty isolative. No medication concerns. Medication Compliance: Yes Side effects from medications: No Attending Groups: No Review of Systems Acute medical concerns: No Review of Systems Review of Systems Unremarkable Mental Status Exam Mental Status Exam Narrative: Pleasant. Self-care okay. Isolative. Does endorse feeling depressed but this is improving. No SI. No psychosis. Insight and judgment okay Diagnostics Vital Signs (24Hr): Vital Signs - 24 hr 05/02/22 16:18 05/03/22 06:00 Temperature 98.7 F 98.1 F Pulse Rate 74 71 Respiratory Rate 16 Blood Pressure 107/59 L 121/67 Pulse Oximetry 98 98 Oxygen Delivery Method Room Air Room Air BMI result Body Mass Index 27.8 Labs Results: 04/29/22 14:31 04/29/22 14:31 Medications Medications Current Medications Acetaminophen (Acetaminophen 325 Mg Tablet) 650 mg PO Q6H PRN PRN Reason: Headache/Pain Mild Scale (1-3) Al Hydroxide/Mg Hydroxide (Magnesium Hydrox/Alum Hydrox 30 Ml Oral.Susp) 30 ml PO Q6H PRN PRN Reason: Heartburn/Nausea Benztropine Mesylate (Benztropine Mesylate 1 Mg Tablet) 1 mg PO BID PRN PRN Reason: Anxiety Diphenhydramine HCl (Diphenhydramine Hcl 25 Mg Tablet) 50 mg PO TID [facility] Last Admin: 05/03/22 14:10 Dose: 50 mg Duloxetine HCl (Duloxetine Hcl 60 Mg Capsule.Dr) 60 mg PO DAILY [facility] Last Admin: 05/03/22 08:34 Dose: 60 mg Hydroxyzine HCl (Hydroxyzine Hcl 50 Mg Tablet) 50 mg PO Q4H PRN PRN Reason: Anxiety Magnesium Hydroxide (Milk Of Magnesia 30 Ml Oral.Susp) 30 ml PO DAILY PRN PRN Reason: Constipation Mirtazapine (Mirtazapine 15 Mg Tablet) 15 mg PO BEDTIME [facility] Last Admin: 05/02/22 20:18 Dose: 15 mg Nicotine (Nicotine 21 Mg Patch.Td24) 21 mg TRANSDERMA DAILY [facility] Last Admin: 05/03/22 08:34 Dose: 21 mg Perphenazine (Perphenazine 8 Mg Tablet) 8 mg PO TID [facility] Last Admin: 05/03/22 14:11 Dose: 8 mg Trazodone HCl (Trazodone Hcl 100 Mg Tablet) 100 mg PO BEDTIME [facility] Last Admin: 05/02/22 20:16 Dose: 100 mg Allergies Allergies Allergy/AdvReac Type Severity Reaction Status Date / Time cefdinir [From OMNICEF] Allergy Unknown ANAPHYLAXIS Verified 11/04/21 09:45 Assessment & Plan Assessment & Plan (1) Recurrent major depression-severe: Status: Acute Code(s): F33.2 - Major depressive disorder, recurrent severe without psychotic features (2) Alcohol use disorder, severe, dependence: Status: Acute Code(s): F10.20 - Alcohol dependence, uncomplicated (3) Cocaine use disorder, severe, dependence: Status: Acute Code(s): F14.20 - Cocaine dependence, uncomplicated Plan 05/01/22: TDN to 05/04/22 Pt presents as depressed, anergic. No milieu participation Declines medication interventions Spending most of his time in his room, in bed. 05/03/2022: No changes to current treatment plan I spent minutes with the patient and/or on the patient floor today, greater than?50% of which was spent counseling/coordinating care. Reason for contiued inpatient stay Substantial Risk for: inability to function
[2022-05-03 19:50] VITALS: BP 126/76; PULSE 80; TEMP 36.8
[2022-05-03] MEDS: traZODone HCL 100 MG TABLET PO (20:21)
[2022-05-03] MEDS: Mirtazapine 15 MG TABLET PO (20:22)
[2022-05-04 06:00] VITALS: BP 122/68; PULSE 71; TEMP 36.3; O2SAT 98
[2022-05-04] MEDS: DULoxetine HCl 60 MG CAPSULE.DR PO (09:35)
[2022-05-04] MEDS: Perphenazine 8 MG TABLET PO (09:35)
[2022-05-04] MEDS: Nicotine 21 MG PATCH.TD24 TRANSDERMA (09:35)
[2022-05-04] MEDS: diphenhydrAMINE HCL 25 MG TABLET 50 MG PO (09:35)
--- NOTE | 2022-05-04 17:42 | P.DS_ITS ---
DS: Providers Provider Date of Service: 05/04/22 Date of admission: 04/29/22 15:25 Date of discharge: 05/04/22 Primary care physician: Unknown Physician Admitting clinician: Cee Hartman Attending physician on admission: Nacho Hernandez Attending physician on discharge: Nacho Hernandez Discharging clinician: Cee Hartman DS: Diagnosis Discharge Diagnosis (1) Recurrent major depression-severe: Status: Acute (2) Alcohol use disorder, severe, dependence: Status: Acute (3) Cocaine use disorder, severe, dependence: Status: Acute DS: Medications Discharge Medications Home Medications: Previous Rx's Medication Instructions Recorded benztropine 1 mg tablet 1 tab PO BID PRN Anxiety #14 tabs 05/04/22 diphenhydramine HCl 50 mg capsule 1 cap PO TID #21 caps 05/04/22 duloxetine 60 mg capsule,delayed 1 cap PO DAILY 30 days #30 caps 05/04/22 release hydroxyzine pamoate 50 mg capsule 1 cap PO Q4H PRN Anxiety #14 caps 05/04/22 mirtazapine 15 mg tablet 1 tab PO BEDTIME #7 tabs 05/04/22 nicotine 21 mg/24 hr daily 1 patch topical DAILY #30 ea 05/04/22 transdermal patch perphenazine 8 mg tablet 1 tab PO TID #21 tabs 05/04/22 trazodone 100 mg tablet 1 tab PO BEDTIME #7 tabs 05/04/22 Mental Status Exam Mental Status Exam Patient Appearance: Appropriate Patient Orientation: Person, Place, Time and Situation Level of Consciousness: Alert Patient Behavior: Appropriate and Talkative Mood Description: Appropriate Affect Description: Appropriate Patient Cognition Impaired: No Ability to Follow Directions: Good Speech Pattern: Spontaneous Speech Memory Description: Intact Hallucinations: None Delusions: Not Present Thought Process: Goal Oriented Thought Content: positive for Goal Oriented Depressive Symptoms: Thoughts of /Suicide (denies SI plan or intent) Judgement: Good Data Data Completed and Pending Completed studies during hospitalization [Text1]: 04/29/22 04/29/22 04/29/22 04:35 14:31 14:31 WBC 8.9 RBC 4.85 Hgb 14.6 Hct 41.3 L MCV 85.2 MCH 30.1 MCHC 35.4 RDW 12.0 Plt Count 285 MPV 8.8 L Immature Gran % (Auto) 0.2 Neut % (Auto) 54.9 Lymph % (Auto) 30.2 Walton % (Auto) 10.8 Eos % (Auto) 3.4 Baso % (Auto) 0.5 Lymph # (Auto) 2.7 Walton # (Auto) 1.0 Eos # (Auto) 0.3 Baso # (Auto) 0.0 Abs Immat Gran (auto) 0.02 Absolute Neuts (auto) 4.9 Absolute Nucleated RBC 0.000 Nucleated RBC % (auto) 0.0 Sodium 142 Potassium 3.8 Chloride 106 Carbon Dioxide 28 Anion Gap 12 BUN 17 H Creatinine 1.13 Estim Creat Clear Calc 108.1 Estimated GFR > 60 Fasting Glucose 94 Estimat Average Glucose Hemoglobin A1c % Calcium 9.1 D Magnesium Total Bilirubin 0.9 AST 21 ALT 25 Alkaline Phosphatase 92 D Total Protein 6.7 Albumin 4.3 Triglycerides Cholesterol LDL Cholesterol, Calc HDL Cholesterol Vitamin B12 Folate TSH Free T4 COVID-19 ([facility]) Negative COVID-19 Clin Com See Note 04/30/22 04/30/22 04/30/22 08:12 08:12 08:12 WBC RBC Hgb Hct MCV MCH MCHC RDW Plt Count MPV Immature Gran % (Auto) Neut % (Auto) Lymph % (Auto) Walton % (Auto) Eos % (Auto) Baso % (Auto) Lymph # (Auto) Walton # (Auto) Eos # (Auto) Baso # (Auto) Abs Immat Gran (auto) Absolute Neuts (auto) Absolute Nucleated RBC Nucleated RBC % (auto) Sodium Potassium Chloride Carbon Dioxide Anion Gap BUN Creatinine Estim Creat Clear Calc Estimated GFR Fasting Glucose Estimat Average Glucose 97 Hemoglobin A1c % 5.0 Calcium Magnesium 2.0 Total Bilirubin AST ALT Alkaline Phosphatase Total Protein Albumin Triglycerides 95 Cholesterol 157 LDL Cholesterol, Calc 95 HDL Cholesterol 43 Vitamin B12 305 Folate 7.4 TSH 1.60 Free T4 0.91 COVID-19 ([facility]) COVID-19 Clin Com DS: Summary Hospital Course Hospital Course: Admission to adult psychiatry for exacerbation of symptoms of recurrent major depression, SI, polysubstance use (alcohol, cocaine, cannabis) and situational crisis. Pt reported being recently post [address] with treatment plan in place. Declined medication interventions, as a result regime remains unchanged. Pt planning to attend [facility] IOP per [facility] planning. Family is comfortable in bringing pt home and will have him return if symptoms exacerbate. Pt utilized milieu briefly to re-establish safety and stability and reports he is prepared to move forward. Time spent discussing smoking cessation with patient: 3 to 10 minutes Status at Discharge Functional status at discharge: independent ambulation Overall status at discharge: patient is progressing back to baseline Time Spent with Patient Time attestation: Total time spent providing and/or coordinating discharge services: 35 Time spent: Greater than 30 minutes Discharge Plan Discharge Patient Disposition: Home, Self-Care Discharge Diagnosis: Recurrent major depression, severe Alcohol Use Disorder, Severe, Dependence Cocaine Use Disorder, Severe, Dependence Referrals: Therapy: Jazmyne Chris [Other] - 05/06/22 10:00 am (This appointment is in- office) Psychiatric Medication Management: Marcy Rich [Other] - 05/20/22 2:00 pm (This appointment is in-office) [facility] [Other] - 1 Week Discharge Medications: Continued diphenhydramine HCl 50 mg capsule 1 cap PO TID Qty: 21 4RF hydroxyzine pamoate 50 mg capsule 1 cap PO Q4H PRN (Reason: Anxiety) Qty: 14 4RF trazodone 100 mg tablet 1 tab PO BEDTIME Qty: 7 0RF benztropine 1 mg tablet 1 tab PO BID PRN (Reason: Anxiety) Qty: 14 4RF nicotine 21 mg/24 hr patch 24 hour 1 patch topical DAILY Qty: 30 0RF mirtazapine 15 mg tablet 1 tab PO BEDTIME Qty: 7 4RF perphenazine 8 mg tablet 1 tab PO TID Qty: 21 4RF duloxetine 60 mg capsule,delayed release(DR/EC) 1 cap PO DAILY 30 Days Qty: 30 0RF Discharge Orders: Discharge Order (Routine); Ordered 05/04/22 Ordered By: Cee Hartman Diet: Advance to usual diet Activity on Discharge: As tolerated Stand Alone Forms: Patient Portal Discharge page, Community Support Care Plan Goals: Mood Stabilization Work on Sobriety Health Concerns: Recurrent severe major depression Alcohol Use Disorder Cocaine Use Disorder Plan of Treatment: [facility] as arranged by [facility] team Attend follow up appointments Take medications as directed Call/Return as needed Crisis Services if needed [phone]. Assessment: non-suicidal, non-psychotic Discharge Date/Time: 05/04/22 13:58
== END 2022-05-04 13:58 | disposition home or self-care (01) | DRG 751 ==
LOC: HO.ED 14:18 → HO.PM5 15:36
PROVIDERS: Clinical Nurse Specialist Psychiatric/Mental Health, Adult; Emergency Medicine; Admitting Provider Psychiatry & Neurology Psychiatry; Emergency Provider Emergency Medicine Emergency Medical Services; Visit Provider Psychiatry & Neurology Psychiatry
DX: F33.2 Major depressive disorder, recurrent severe without psychotic features (principal); R45.851 Suicidal ideations; F10.20 Alcohol dependence, uncomplicated; F14.20 Cocaine dependence, uncomplicated; F17.210 Nicotine dependence, cigarettes, uncomplicated; Z20.822 Contact with and (suspected) exposure to COVID-19; Z71.6 Tobacco abuse counseling; Z88.8 Allergy status to other drugs, medicaments and biological substances; Z79.899 Other long term (current) drug therapy
CPT/HCPCS: 36415; 80053; 80061; 82607; 82746; 83036; 83735; 84439; 84443; 85025; 87635; 93005; 99285; Q0163